=== PATIENT | male | born 1955 | race Caucasian/White ===

== ENCOUNTER 2017-05-20 12:01 | Observation (INO) ==
[2017-05-20 14:54] LABS: Basophils # 0.1 10*3/uL (0.0-0.2); Basophils % 0.9 % (0.0-0.8); Eosinophils # 1.6 10*3/uL (0.0-0.87); Hematocrit 45.2 VOL% (42.0-52.0); Hemoglobin 15.4 GM/DL (14.0-18.0); Immature Granulocytes % 0.4 %; Immature Granulocytes Absolute 0.03 #; Lymphocytes # 1.5 10*3/uL (1.4-4.0); Lymphocytes % 18.8 % (21.2-54.2); Mean Corpuscular HGB Conc 34.1 GM/DL (32-36); Mean Corpuscular Hemoglobin 30 PG (27-34); Mean Corpuscular Volume 87.6 FL (87-102); Mean Platelet Volume 9.3 FL (9.6-12.0); Monocytes # 0.5 10*3/uL (0.11-0.8); Monocytes % 6.3 % (1.7-12.7); Neutrophils # 4.2 10*3/uL (1.4-7.4); Neutrophils % 53.6 % (38.7-73.9); Platelet Count 194 T/CUMM (130-400); Red Blood Count 5.16 MC/CUMM (3.8-5.5); Red Cell Distribution Width 13.2 % (9.3-17.3); White Blood Count 7.8 T/CUMM (4-12)
[2017-05-20 15:02] LABS: PT Patient Result 10.1 SECS; Partial Thromboplastin Time 25.8 SECS (0-40)
[2017-05-20 15:22] LABS: Eosinophils 17 % (0-10); Lymphocytes 18 % (20-55); Platelet Estimate Adequate; Segmented Neutrophils 58 % (50-85); Total Cells Counted 100
[2017-05-20 15:23] LABS: Alanine Aminotransferase 20 U/L (16-61); Albumin 3.9 G/DL (3.4-5.0); Alkaline Phosphatase 73 U/L (45-117); Aspartate Amino Transferase 10 U/L (0-37); Bilirubin,Total < 0.39 MG/DL (0.2-1.0); Blood Urea Nitrogen 22 MG/DL (7-18); Calcium 9.4 MG/DL (8.5-10.1); Glucose 129 MG/DL (74-106); Osmolality,Calculated 283.4 MOS/KG (273-304); Potassium 3.8 MMOL/L (3.5-5.1); Sodium 140 MMOL/L (136-145); Total Protein 7.5 G/DL (6.4-8.3); Troponin I Only < 0.015 NG/ML (0.00-0.045)
[2017-05-20 17:28] LABS: Risk Ratio 4.36; VLDL CHOLESTEROL 29.2 MG/DL
[2017-05-20] MEDS ORDERED: ENOXAPARIN 40 MG/0.4 ML SYRINGE ONE (18:58)
[2017-05-20] MEDS ORDERED: ASPIRIN 325 MG TABLET ONE (18:59)
[2017-05-20] MEDS ORDERED: CLOPIDOGREL 75 MG TABLET ONE (18:59)
[2017-05-20] MEDS: ENOXAPARIN 40 MG/0.4 ML SYRINGE SUBCUT SCH (19:12)
[2017-05-20] MEDS ORDERED: CLOPIDOGREL 75 MG TABLET PO STA (19:13)
[2017-05-20] MEDS ORDERED: oxyCODONE/ACETAMINOPHEN 5-325 MG TABLET PO PRN (23:17)
[2017-05-20] MEDS: ASPIRIN EC 81 MG TABLET PO SCH (23:55)
[2017-05-20] MEDS: PRAVASTATIN 40 MG TABLET PO SCH (23:55)
[2017-05-21] MEDS: CLOPIDOGREL 75 MG TABLET PO SCH (08:53)
[2017-05-21] MEDS: metFORMIN 500 MG TABLET PO SCH ×2 (08:56→18:01)
[2017-05-21] MEDS: sitaGLIPtin 25 MG TABLET PO SCH ×2 (08:57→18:01)
[2017-05-21] MEDS: ASPIRIN 325 MG TABLET PO SCH (08:58)
[2017-05-21] MEDS ORDERED: Canagliflozin [Invokana] 300 MG PO SCH (09:00)
[2017-05-21] MEDS: ENOXAPARIN 40 MG/0.4 ML SYRINGE SUBCUT SCH (17:57)
[2017-05-21] MEDS: PRAVASTATIN 40 MG TABLET PO SCH ×2 (20:28→20:30)
[2017-05-21] MEDS: ASPIRIN EC 81 MG TABLET PO SCH (20:29)
[2017-05-22 08:16] VITALS: BP 131/72
[2017-05-22] MEDS: CLOPIDOGREL 75 MG TABLET PO SCH (09:06)
[2017-05-22] MEDS: metFORMIN 500 MG TABLET PO SCH (09:09)
[2017-05-22] MEDS: ASPIRIN 325 MG TABLET PO SCH (09:09)
[2017-05-22] MEDS: sitaGLIPtin 25 MG TABLET PO SCH (09:09)
== END 2017-05-22 11:50 | disposition home or self-care (01) ==
LOC: N.EDINP 12:01 → N.ED 12:01 → N.TELES 19:58
PROVIDERS: ADMIT Hospitalist; ATTEND Hospitalist

== ENCOUNTER 2017-06-18 06:56 | Inpatient (IN) ==
[2017-06-16 16:01] LABS: Basophils # 0.1 10*3/uL (0.0-0.2); Basophils % 0.9 % (0.0-0.8); Eosinophils # 1.4 10*3/uL (0.0-0.87); Hemoglobin 14.1 GM/DL (14.0-18.0); Immature Granulocytes % 0.4 %; Immature Granulocytes Absolute 0.03 #; Lymphocytes # 1.4 10*3/uL (1.4-4.0); Lymphocytes % 20.4 % (21.2-54.2); Mean Corpuscular HGB Conc 32.8 GM/DL (32-36); Mean Corpuscular Hemoglobin 30 PG (27-34); Mean Corpuscular Volume 90.7 FL (87-102); Mean Platelet Volume 9.2 FL (9.6-12.0); Monocytes # 0.5 10*3/uL (0.11-0.8); Monocytes % 6.7 % (1.7-12.7); Neutrophils # 3.6 10*3/uL (1.4-7.4); Neutrophils % 51.6 % (38.7-73.9); Platelet Count 237 T/CUMM (130-400); Red Blood Count 4.74 MC/CUMM (3.8-5.5); Red Cell Distribution Width 12.9 % (9.3-17.3); White Blood Count 6.9 T/CUMM (4-12)
[2017-06-16 16:20] LABS: Potassium 4.3 MMOL/L (3.5-5.1)
[2017-06-16 16:27] LABS: Eosinophils 12 % (0-10); Lymphocytes 20 % (20-55); Platelet Estimate Adequate; Segmented Neutrophils 64 % (50-85); Total Cells Counted 100
[~2017-06-18 06:56] MED LIST: ceFAZolin 1,000 MG VIAL ONE; ceFAZolin 1,000 MG in SYRINGE 1 EACH IV ONE
[2017-06-18] MEDS ORDERED: FAMOTIDINE 20 MG TABLET ONE (07:06)
[2017-06-18] MEDS ORDERED: DIAZEPAM 5 MG TABLET ONE (07:06)
[2017-06-18] MEDS: LACTATED RINGERS 1,000 ML IV SCH ×3 (07:30→19:10)
[2017-06-18] MEDS ORDERED: DIAZEPAM 5 MG TABLET PO STA (07:33)
[2017-06-18] MEDS ORDERED: FAMOTIDINE 20 MG TABLET PO STA (07:34)
[2017-06-18] MEDS ORDERED: HEPARIN 5,000 UNIT/1 ML VIAL ONE (07:48)
[2017-06-18] MEDS ORDERED: VANCOMYCIN 500 MG VIAL ONE (07:48)
[2017-06-18 09:50] LABS: ABG Base Excess -1.1 MMOL/L (-2.5-2.5); ABG HCO3 23.5 MMOL/L (20-26); ABG Oxygen Saturation 99.3 % (95-100); ABG PCO2 38.7 MM HG (35-48); ABG PH 7.392 (7.35-7.45); ABG TCO2 20.6 MMOL/L (23-27); Glucose Heart Surgery 126 MG/DL (74-106); Hematocrit Heart Surgery 39.8 PERCENT (42-52); Hemoglobin Heart Surgery 12.9 G/DL (14.0-18.0); Potassium Heart/CVR 3.8 MMOL/L (3.5-5.1)
[2017-06-18] MEDS ORDERED: GLUCAGON 1 MG VIAL IM PRN (10:00)
[2017-06-18] MEDS ORDERED: NITROPRUSSIDE 100 MG in DEXTROSE 5% 250 ML IV SCH (10:00)
[2017-06-18] MEDS ORDERED: NALOXONE 0.4 MG/ML VIAL IV PRN (10:00)
[2017-06-18] MEDS ORDERED: DEXTROSE 50% 25 GM/50 ML VIAL IV PRN (10:00)
[2017-06-18] MEDS ORDERED: oxyCODONE/ACETAMINOPHEN 5-325 MG TABLET PO PRN ×2 (10:00)
[2017-06-18] MEDS ORDERED: ONDANSETRON 4 MG/2 ML VIAL IV PRN ×2 (10:00→11:00)
[2017-06-18] MEDS ORDERED: PROMETHAZINE 25 MG/1 ML VIAL IM PRN (10:00)
[2017-06-18] MEDS ORDERED: PHENYLEPHRINE DRIP 40 MG/250 ML PREMIX IV SCH (10:00)
[2017-06-18] MEDS ORDERED: HYDROmorphone 2 MG/1 ML VIAL IV PRN ×3 (10:00→11:00)
[2017-06-18] MEDS ORDERED: PROPOFOL 200 MG/20 ML VIAL IV ONE (10:19)
[2017-06-18] MEDS ORDERED: DESFLURANE 1 UNIT/15 MINUTE INH ONE (10:20)
[2017-06-18] MEDS ORDERED: NEOSTIGMINE 10 MG/10 ML VIAL ONE (10:20)
[2017-06-18] MEDS ORDERED: fentaNYL 100 MCG/2 ML VIAL ONE (10:20)
[2017-06-18] MEDS ORDERED: GLYCOPYRROLATE 0.4 MG/2 ML VIAL ONE (10:20)
[2017-06-18] MEDS ORDERED: PHENYLEPHRINE 50 MG/5 ML VIAL ONE (10:20)
[2017-06-18] MEDS ORDERED: SODIUM CHLORIDE 0.9% 250 ML IV ONE (10:21)
[2017-06-18] MEDS ORDERED: SODIUM CHLORIDE 0.9% 1,000 ML IV ONE (10:21)
[2017-06-18] MEDS ORDERED: ROCURONIUM 100 MG/10 ML VIAL IV ONE (10:21)
[2017-06-18] MEDS ORDERED: PROTAMINE SULFATE 50 MG/5 ML VIAL IV ONE (10:21)
[2017-06-18] MEDS ORDERED: HEPARIN 10,000 UNIT/10 ML VIAL ONE (10:21)
[2017-06-18] MEDS ORDERED: diphenhydrAMINE 50 MG/1 ML VIAL IV ONE (12:02)
[2017-06-18] MEDS ORDERED: DEXAMETHASONE 10 MG/1 ML VIAL IV ONE (12:02)
[2017-06-18] MEDS ORDERED: KETOROLAC 30 MG/1 ML VIAL IV ONE (12:16)
[2017-06-18] MEDS: ASPIRIN 325 MG TABLET PO SCH (20:58)
[2017-06-18] MEDS: CLOPIDOGREL 75 MG TABLET PO SCH (20:58)
[2017-06-18] MEDS: INSULIN REGULAR 100 UNIT/ML SUBCUT SCH (20:58)
[2017-06-18] MEDS ORDERED: METFORMIN HCL PO SCH (21:00)
[2017-06-18] MEDS ORDERED: PRAVASTATIN 40 MG TABLET PO SCH (21:00)
[2017-06-18] MEDS ORDERED: SITAGLIPTIN PHOS PO SCH (21:00)
[2017-06-19] MEDS: LACTATED RINGERS 1,000 ML IV SCH ×2 (07:46→08:05)
[2017-06-19] MEDS: INSULIN REGULAR 100 UNIT/ML SUBCUT SCH ×2 (08:04→12:42)
[2017-06-19] MEDS: CLOPIDOGREL 75 MG TABLET PO SCH (08:55)
[2017-06-19] MEDS: ASPIRIN 325 MG TABLET PO SCH (08:56)
[2017-06-19] MEDS ORDERED: CLOPIDOGREL 75 MG TABLET PO SCH (09:00)
[2017-06-19] MEDS ORDERED: ASPIRIN 325 MG TABLET PO SCH (09:00)
[2017-06-19] MEDS ORDERED: CANAGLIFLOZIN 300 MG PO SCH ×2 (09:00→09:30)
[2017-06-19] MEDS ORDERED: OXYCODONE PO PRN (09:46)
[2017-06-19] MEDS ORDERED: ACETAMINOPHEN PO PRN (09:46)
[2017-06-19 11:47] VITALS: BP 95/54
== END 2017-06-19 13:00 | disposition home or self-care (01) | DRG 39 ==
LOC: N.SDSINP 06:56 → N.ICU 11:48 → N.3E 06-19 09:45
PROVIDERS: ADMIT Surgery; ATTEND Surgery

== ENCOUNTER 2019-04-04 13:05 | Observation (INO) ==
[2019-04-04] MEDS ORDERED: MORPHINE 4 MG/1 ML VIAL IV STA (13:30)
[2019-04-04] MEDS ORDERED: FUROSEMIDE 100 MG/10 ML VIAL IV STA (13:30)
[2019-04-04 14:24] LABS: Basophils % 0.7 % (0.0-0.8); Eosinophils % 17.8 % (0.00-10.9); Hematocrit 39.2 VOL% (42.0-52.0); Hemoglobin 12.4 GM/DL (14.0-18.0); Immature Granulocytes % 0.2 %; Immature Granulocytes Absolute 0.01 #; Lymphocytes # 0.7 10*3/uL (1.4-4.0); Lymphocytes % 12.3 % (21.2-54.2); Mean Corpuscular HGB Conc 31.6 GM/DL (32-36); Mean Corpuscular Volume 89.7 FL (87-102); Mean Platelet Volume 10.1 FL (9.6-12.0); Platelet Count 197 T/CUMM (130-400); Red Blood Count 4.37 MC/CUMM (3.8-5.5); Red Cell Distribution Width 13.8 % (9.3-17.3); White Blood Count 5.8 T/CUMM (4-12)
[2019-04-04] MEDS ORDERED: ALBUTEROL 2.5 MG/3 ML NEB RESP TX STA (14:44)
[2019-04-04 14:51] LABS: Albumin 3.7 G/DL (3.4-5.0); Bilirubin,Total 0.4 MG/DL (0.2-1.0); Calcium 8.8 MG/DL (8.5-10.1); Osmolality,Calculated 287.1 MOS/KG (273-304); Total Protein 7.1 G/DL (6.4-8.3)
[2019-04-04] MEDS ORDERED: DOCUSATE SODIUM 100 MG CAPSULE PO PRN (15:55)
[2019-04-04] MEDS ORDERED: ACETAMINOPHEN 325 MG TABLET PO PRN (15:55)
[2019-04-04] MEDS ORDERED: ONDANSETRON 4 MG/2 ML VIAL IV PRN (15:55)
[2019-04-04] MEDS ORDERED: LACTULOSE 20 GM/30 ML UDCUP PO PRN (15:55)
[2019-04-04] MEDS ORDERED: NICOTINE 21 MG/24 HR PATCH TRANSDERM PRN (15:55)
[2019-04-04] MEDS ORDERED: guaiFENesin/DM ER 600-30 MG TABLET PO PRN (15:55)
[2019-04-04] MEDS ORDERED: MAGNESIUM SULF RIDER 4 GM in PREMIX 1 EACH IV PRN (15:55)
[2019-04-04] MEDS ORDERED: ALBUTEROL 2.5 MG/3 ML NEB RESP TX PRN (15:58)
[2019-04-04] MEDS ORDERED: DEXTROSE 10% 25 GM/250 ML BAG IV PRN (15:59)
[2019-04-04] MEDS ORDERED: GLUCAGON 1 MG VIAL IM PRN (15:59)
[2019-04-04 16:00] LABS: Apearance,Urine CLEAR (Clear); Bilirubin,Urine Negative (Negative); Blood, Urine Negative (Negative); Glucose,Urine (UA) >=500 mg/dL (Negative); Ketones,Urine Negative (Negative); Mucus,Urine Occasional /LPF (Occasional); Nitrite,Urine Negative (Negative); Protein,Urine Negative; RBC,Urine 2 /HPF (0-4); Urine Color Yellow (Yellow); Urine Specific Gravity 1.009 (1.001-1.035); Urine Urobilinogen < 2.0 EU/DL (0.2-1.0); WBC,Urine <1 /HPF (0-6)
[2019-04-04] MEDS ORDERED: FUROSEMIDE 40 MG/4 ML VIAL IV SCH (16:00)
[2019-04-04 16:06] LABS: Eosinophils 16 % (0-10); Lymphocytes 11 % (20-55); Nucleated Red Blood Cells 1 (0-5); Segmented Neutrophils 70 % (50-85); Total Cells Counted 100
[2019-04-04 16:07] LABS: Anisocytosis 1+; Microcytosis 1+; Platelet Estimate Normal
[2019-04-04] MEDS ORDERED: ENOXAPARIN 40 MG/0.4 ML SYRINGE SUBCUT SCH (16:30)
[2019-04-04] MEDS: INSULIN REGULAR 100 UNIT/ML SUBCUT SCH ×2 (17:35→22:49)
[2019-04-04] MEDS: ALBUTEROL/IPRATROPIUM 3 ML NEB RESP TX SCH ×2 (19:14→23:00)
[2019-04-04] MEDS: BUMETANIDE 1 MG/4 ML VIAL IV SCH (20:31)
[2019-04-04] MEDS: MAGNESIUM OXIDE 400 MG TABLET PO SCH (20:37)
[2019-04-04] MEDS: GLIMEPIRIDE 4 MG TABLET PO SCH (20:38)
[2019-04-04] MEDS: MAGNESIUM SULF RIDER 2 GM in PREMIX 1 EACH IV PRN ×2 (20:39→22:35)
[2019-04-04] MEDS ORDERED: metFORMIN 500 MG TABLET PO SCH (21:00)
[2019-04-04] MEDS ORDERED: ENOXAPARIN 100 MG/ML SYRINGE SUBCUT SCH (21:00)
[2019-04-04] MEDS ORDERED: SIMVASTATIN 20 MG TABLET PO SCH (21:00)
[2019-04-04] MEDS ORDERED: ASPIRIN EC 81 MG TABLET PO SCH (21:00)
[2019-04-05] MEDS: ALBUTEROL/IPRATROPIUM 3 ML NEB RESP TX SCH ×3 (03:00→10:42)
[2019-04-05 04:28] LABS: Basophils # 0.1 10*3/uL (0.0-0.2); Basophils % 0.8 % (0.0-0.8); Eosinophils # 1.5 10*3/uL (0.0-0.87); Eosinophils % 22.2 % (0.00-10.9); Hematocrit 36.5 VOL% (42.0-52.0); Hemoglobin 11.6 GM/DL (14.0-18.0); Immature Granulocytes % 0.3 %; Immature Granulocytes Absolute 0.02 #; Lymphocytes # 0.8 10*3/uL (1.4-4.0); Lymphocytes % 11.6 % (21.2-54.2); Mean Corpuscular HGB Conc 31.8 GM/DL (32-36); Mean Platelet Volume 11.6 FL (9.6-12.0); Monocytes % 6.6 % (1.7-12.7); Neutrophils % 58.5 % (38.7-73.9); Platelet Count 160 T/CUMM (130-400); Red Blood Count 4.15 MC/CUMM (3.8-5.5); White Blood Count 6.5 T/CUMM (4-12)
[2019-04-05 04:49] LABS: Eosinophils 23 % (0-10); Hypochromasia 1+; Lymphocytes 11 % (20-55); Ovalocytes Slight; Platelet Estimate Adequate; Segmented Neutrophils 56 % (50-85); Total Cells Counted 100
[2019-04-05 04:50] LABS: Microcytosis 1+
[2019-04-05 04:55] LABS: ABG HCO3 28.9 MMOL/L (20-26); ABG Oxygen Saturation 93.2 % (95-100); ABG PCO2 50.8 MM HG (35-48); ABG PH 7.395 (7.35-7.45); ABG PO2 68.6 MM HG (80-95); ABG TCO2 27.7 MMOL/L (23-27)
[2019-04-05] MEDS ORDERED: SPIRONOLACTONE 25 MG TABLET PO SCH (09:00)
[2019-04-05] MEDS ORDERED: POTASSIUM CHLORIDE 10 MEQ TABLET PO SCH (09:00)
[2019-04-05] MEDS ORDERED: PANTOPRAZOLE 40 MG TABLET PO SCH (09:00)
[2019-04-05] MEDS ORDERED: carvediloL 3.125 MG TABLET PO SCH (09:00)
[2019-04-05] MEDS ORDERED: BISACODYL 5 MG TABLET PO SCH (09:00)
[2019-04-05] MEDS ORDERED: CLOPIDOGREL 75 MG TABLET PO SCH (09:00)
[2019-04-05] MEDS ORDERED: ENOXAPARIN 40 MG/0.4 ML SYRINGE SUBCUT SCH (09:12)
[2019-04-05 09:58] LABS: Calcium 8.7 MG/DL (8.5-10.1); Risk Ratio 3.37; VLDL CHOLESTEROL 22.4 MG/DL
[2019-04-05] MEDS: GLIMEPIRIDE 4 MG TABLET PO SCH (10:01)
[2019-04-05] MEDS: MAGNESIUM OXIDE 400 MG TABLET PO SCH (10:03)
[2019-04-05] MEDS: BUMETANIDE 1 MG/4 ML VIAL IV SCH (10:05)
[2019-04-05] MEDS: INSULIN REGULAR 100 UNIT/ML SUBCUT SCH ×2 (10:06→11:55)
[2019-04-05 11:55] VITALS: BP 101/66
[2019-04-05] MEDS ORDERED: BUDESONIDE/FORMOTEROL 160-4.5 INHALER 6 GM INH SCH (21:00)
[2019-04-05] MEDS ORDERED: sitaGLIPtin 100 MG TABLET PO SCH (21:00)
== END 2019-04-05 16:30 | disposition home or self-care (01) ==
LOC: N.ED 13:05 → N.EDINP 13:05 → N.2W 16:41
PROVIDERS: ADMIT Hospitalist; ATTEND Hospitalist

== ENCOUNTER 2019-05-06 19:27 | Inpatient (IN) ==
[2019-05-06] MEDS ORDERED: methylPREDNISolone SOD SUC 125 MG/2 ML VIAL IV STA (20:04)
[2019-05-06 20:23] LABS: Basophils % 0.5 % (0.0-0.8); Eosinophils # 0.4 10*3/uL (0.0-0.87); Hematocrit 39.5 VOL% (42.0-52.0); Hemoglobin 12.5 GM/DL (14.0-18.0); Immature Granulocytes % 0.5 %; Immature Granulocytes Absolute 0.03 #; Lymphocytes # 0.7 10*3/uL (1.4-4.0); Lymphocytes % 11.1 % (21.2-54.2); Mean Corpuscular HGB Conc 31.6 GM/DL (32-36); Mean Corpuscular Volume 87.2 FL (87-102); Mean Platelet Volume 10.6 FL (9.6-12.0); Monocytes % 6.8 % (1.7-12.7); Neutrophils % 74.1 % (38.7-73.9); Platelet Count 174 T/CUMM (130-400); Red Blood Count 4.53 MC/CUMM (3.8-5.5); Red Cell Distribution Width 13.9 % (9.3-17.3)
[2019-05-06] MEDS ORDERED: ALBUTEROL NEB SOLN 5 MG/ML 20 ML/BOTTLE RESP TX SCH (20:30)
[2019-05-06 20:33] LABS: PT Patient Result 10.7 SECS (9.6-12.2)
[2019-05-06 20:48] LABS: Bilirubin,Total 0.5 MG/DL (0.2-1.0); Calcium 9.3 MG/DL (8.5-10.1); Osmolality,Calculated 284.8 MOS/KG (273-304); Total Protein 7.5 G/DL (6.4-8.3)
[2019-05-06] MEDS ORDERED: MAGNESIUM CHLORIDE 64 MG TABLET PO STA ×2 (20:54→21:24)
[2019-05-06] MEDS ORDERED: ONDANSETRON 4 MG/2 ML VIAL IV PRN (22:21)
[2019-05-06] MEDS ORDERED: ACETAMINOPHEN 325 MG TABLET PO PRN (22:21)
[2019-05-06] MEDS ORDERED: GLUCAGON 1 MG VIAL IM PRN (23:04)
[2019-05-06] MEDS ORDERED: DEXTROSE 50% 25 GM/50 ML VIAL IV PRN (23:04)
[2019-05-06] MEDS ORDERED: MAGNESIUM SULF RIDER 4 GM in PREMIX 1 EACH IV PRN (23:45)
[2019-05-06] MEDS ORDERED: MAGNESIUM SULF RIDER 2 GM in PREMIX 1 EACH IV PRN (23:45)
[2019-05-06] MEDS ORDERED: FUROSEMIDE 40 MG/4 ML VIAL IV ONE (23:45)
[2019-05-07] MEDS: INSULIN REGULAR 100 UNIT/ML SUBCUT SCH ×4 (00:53→17:26)
[2019-05-07 07:48] LABS: Basophils % 0.2 % (0.0-0.8); Hematocrit 36.3 VOL% (42.0-52.0); Hemoglobin 11.4 GM/DL (14.0-18.0); Immature Granulocytes % 0.5 %; Immature Granulocytes Absolute 0.02 #; Lymphocytes # 0.3 10*3/uL (1.4-4.0); Lymphocytes % 7.5 % (21.2-54.2); Mean Corpuscular HGB Conc 31.4 GM/DL (32-36); Mean Corpuscular Volume 87.3 FL (87-102); Mean Platelet Volume 11.4 FL (9.6-12.0); Monocytes % 3.9 % (1.7-12.7); Neutrophils % 87.9 % (38.7-73.9); Platelet Count 167 T/CUMM (130-400); Red Blood Count 4.16 MC/CUMM (3.8-5.5); Red Cell Distribution Width 14.1 % (9.3-17.3); White Blood Count 4.4 T/CUMM (4-12)
[2019-05-07] MEDS ORDERED: FUROSEMIDE 40 MG/4 ML VIAL IV SCH (08:00)
[2019-05-07 08:03] LABS: Albumin 3.4 G/DL (3.4-5.0); Osmolality,Calculated 288.4 MOS/KG (273-304); Total Protein 6.7 G/DL (6.4-8.3)
[2019-05-07] MEDS: MAGNESIUM OXIDE 400 MG TABLET PO SCH ×2 (08:17→20:56)
[2019-05-07] MEDS: PANTOPRAZOLE 40 MG TABLET PO SCH (08:18)
[2019-05-07] MEDS: DOCUSATE SODIUM 100 MG CAPSULE PO SCH (08:18)
[2019-05-07] MEDS: NYSTATIN 500,000 UNIT/5 ML UDCUP PO SCH ×4 (08:22→20:57)
[2019-05-07] MEDS: BUDESONIDE/FORMOTEROL 160-4.5 INHALER 6 GM INH SCH ×2 (08:23→20:54)
[2019-05-07] MEDS ORDERED: ALBUTEROL SULFATE INH PRN (09:47)
[2019-05-07] MEDS: SPIRONOLACTONE 25 MG TABLET PO SCH (10:21)
[2019-05-07] MEDS: CLOPIDOGREL 75 MG TABLET PO SCH (10:21)
[2019-05-07] MEDS: METOPROLOL TARTRATE 25 MG TABLET PO SCH (14:49)
[2019-05-07] MEDS: ENOXAPARIN 40 MG/0.4 ML SYRINGE SUBCUT SCH (14:50)
[2019-05-07] MEDS ORDERED: MAGNESIUM CITRATE 300 ML BOTTLE PO ONE (15:46)
[2019-05-07] MEDS: FUROSEMIDE 40 MG/4 ML VIAL IV SCH (16:47)
[2019-05-07] MEDS ORDERED: ALBUTEROL 2.5 MG/3 ML NEB RESP TX PRN (16:48)
[2019-05-07] MEDS ORDERED: FUROSEMIDE 40 MG/4 ML VIAL IV ONE (18:43)
[2019-05-07] MEDS: ASPIRIN EC 81 MG TABLET PO SCH (20:54)
[2019-05-07] MEDS: SIMVASTATIN 20 MG TABLET PO SCH (20:57)
[2019-05-07] MEDS: ALBUTEROL 2.5 MG/3 ML NEB RESP TX PRN (21:39)
[2019-05-07] MEDS: clonazePAM 0.5 MG TABLET PO PRN (22:02)
[2019-05-08] MEDS: INSULIN REGULAR 100 UNIT/ML SUBCUT SCH ×5 (00:18→20:57)
[2019-05-08] MEDS: METOPROLOL TARTRATE 25 MG TABLET PO SCH (00:18)
[2019-05-08] MEDS: ALBUTEROL/IPRATROPIUM 3 ML NEB RESP TX SCH ×4 (00:22→19:42)
[2019-05-08] MEDS: ALBUTEROL 2.5 MG/3 ML NEB RESP TX PRN ×2 (04:39→14:34)
[2019-05-08 04:55] LABS: ABG Base Excess 6.3 MMOL/L (-2.5-2.5); ABG Oxygen Saturation 92.6 % (95-100); ABG PCO2 52.9 MM HG (35-48); ABG PH 7.397 (7.35-7.45); ABG PO2 67.8 MM HG (80-95); Allen Test Positive; Pt O2 Delivery Device Room Air
[2019-05-08 06:48] LABS: Calcium 9.2 MG/DL (8.5-10.1); Osmolality,Calculated 278.5 MOS/KG (273-304)
[2019-05-08] MEDS: MAGNESIUM OXIDE 400 MG TABLET PO SCH ×2 (09:39→20:57)
[2019-05-08] MEDS: SPIRONOLACTONE 25 MG TABLET PO SCH (09:39)
[2019-05-08] MEDS: PANTOPRAZOLE 40 MG TABLET PO SCH (09:40)
[2019-05-08] MEDS: NYSTATIN 500,000 UNIT/5 ML UDCUP PO SCH ×4 (09:40→20:57)
[2019-05-08] MEDS: DOCUSATE SODIUM 100 MG CAPSULE PO SCH (09:40)
[2019-05-08] MEDS: CLOPIDOGREL 75 MG TABLET PO SCH (09:40)
[2019-05-08] MEDS: BUDESONIDE/FORMOTEROL 160-4.5 INHALER 6 GM INH SCH ×2 (09:41→20:57)
[2019-05-08] MEDS: METOPROLOL SUCCINATE XL 25 MG TABLET PO SCH ×2 (09:43→20:57)
[2019-05-08] MEDS: FUROSEMIDE 40 MG/4 ML VIAL IV SCH ×2 (09:43→16:57)
[2019-05-08] MEDS: metOLazone 5 MG TABLET PO SCH (09:47)
[2019-05-08] MEDS ORDERED: FUROSEMIDE 40 MG/4 ML VIAL IV ONE (10:39)
[2019-05-08] MEDS ORDERED: metOLazone 2.5 MG TABLET PO ONE (10:43)
[2019-05-08] MEDS: PIPERACILLIN/TAZOBACTAM 3,375 MG in SODIUM CHLORIDE 0.9% 100 ML IV SCH ×2 (14:31→20:58)
[2019-05-08] MEDS: ENOXAPARIN 40 MG/0.4 ML SYRINGE SUBCUT SCH (14:31)
[2019-05-08] MEDS: ACETYLCYSTEINE 20% 800 MG/4 ML VIAL RESP TX SCH ×2 (14:34→19:42)
[2019-05-08] MEDS: ASPIRIN EC 81 MG TABLET PO SCH (20:57)
[2019-05-08] MEDS: SIMVASTATIN 20 MG TABLET PO SCH (20:58)
[2019-05-08] MEDS: clonazePAM 0.5 MG TABLET PO PRN (22:29)
[2019-05-09] MEDS: ALBUTEROL/IPRATROPIUM 3 ML NEB RESP TX SCH ×4 (00:24→21:30)
[2019-05-09] MEDS: ACETYLCYSTEINE 20% 800 MG/4 ML VIAL RESP TX SCH ×4 (02:15→21:30)
[2019-05-09] MEDS: PIPERACILLIN/TAZOBACTAM 3,375 MG in SODIUM CHLORIDE 0.9% 100 ML IV SCH ×3 (05:06→23:08)
[2019-05-09 06:04] LABS: Blood Urea Nitrogen 54 MG/DL (7-18); Calcium 9.4 MG/DL (8.5-10.1); Estimated Glom Filtration Rate 69 ML/MIN; Glucose 100 MG/DL (74-106); Troponin I 0.045 NG/ML (0.00-0.045)
[2019-05-09] MEDS: INSULIN REGULAR 100 UNIT/ML SUBCUT SCH ×4 (07:26→20:55)
[2019-05-09] MEDS ORDERED: POTASSIUM CHLORIDE 20 MEQ PACK PO ONE ×2 (07:34→17:28)
[2019-05-09] MEDS: CLOPIDOGREL 75 MG TABLET PO SCH (08:47)
[2019-05-09] MEDS: DOCUSATE SODIUM 100 MG CAPSULE PO SCH (08:47)
[2019-05-09] MEDS: MAGNESIUM OXIDE 400 MG TABLET PO SCH ×2 (08:47→20:56)
[2019-05-09] MEDS: PANTOPRAZOLE 40 MG TABLET PO SCH (08:47)
[2019-05-09] MEDS: NYSTATIN 500,000 UNIT/5 ML UDCUP PO SCH ×5 (08:47→20:56)
[2019-05-09] MEDS: SPIRONOLACTONE 25 MG TABLET PO SCH (08:48)
[2019-05-09] MEDS: FUROSEMIDE 40 MG/4 ML VIAL IV SCH ×2 (08:48→17:51)
[2019-05-09] MEDS: BUDESONIDE/FORMOTEROL 160-4.5 INHALER 6 GM INH SCH ×2 (08:51→20:56)
[2019-05-09] MEDS: METOPROLOL SUCCINATE XL 25 MG TABLET PO SCH (08:52)
[2019-05-09] MEDS: metOLazone 5 MG TABLET PO SCH (08:53)
[2019-05-09] MEDS: POTASSIUM CHLORIDE 20 MEQ TABLET PO SCH ×5 (12:20→20:55)
[2019-05-09] MEDS ORDERED: LIDOCAINE 1% 20 ML VIAL ONE (12:54)
[2019-05-09] MEDS: ENOXAPARIN 40 MG/0.4 ML SYRINGE SUBCUT SCH (13:46)
[2019-05-09] MEDS ORDERED: diphenhydrAMINE CAP 25 MG CAPSULE PO ONE (14:38)
[2019-05-09] MEDS ORDERED: DIAZEPAM 5 MG TABLET PO ONE (14:38)
[2019-05-09] MEDS ORDERED: POTASSIUM CHLORIDE RIDER 10 MEQ in PREMIX 1 EACH IV PRN (14:38)
[2019-05-09] MEDS ORDERED: MAGNESIUM SULF RIDER 2 GM in PREMIX 1 EACH IV PRN (14:38)
[2019-05-09] MEDS ORDERED: MIDAZOLAM 2 MG/2 ML VIAL ONE (15:30)
[2019-05-09] MEDS ORDERED: fentaNYL 100 MCG/2 ML VIAL ONE (15:32)
[2019-05-09] MEDS ORDERED: HEPARIN 5,000 UNIT/1 ML VIAL ONE (15:47)
[2019-05-09 16:15] LABS: Apearance,Urine CLEAR (Clear); Bilirubin,Urine Negative (Negative); Blood, Urine Small mg/dL (Negative); Glucose,Urine (UA) Negative (Negative); Hyaline Casts,Urine 3 /LPF (0-3); Ketones,Urine Negative (Negative); Nitrite,Urine Negative (Negative); Protein,Urine Negative; RBC,Urine 1 /HPF (0-4); Squamous Epithelial Cell,Urine Occasional /HPF (0-10); Urine Color Colorless (Yellow); Urine Specific Gravity 1.008 (1.001-1.035); Urine Urobilinogen < 2.0 EU/DL (0.2-1.0)
[2019-05-09] MEDS: oxyCODONE/ACETAMINOPHEN 5-325 MG TABLET PO PRN (19:55)
[2019-05-09] MEDS: ASPIRIN EC 81 MG TABLET PO SCH (20:55)
[2019-05-09] MEDS: carvediloL 3.125 MG TABLET PO SCH (20:55)
[2019-05-09] MEDS: SIMVASTATIN 20 MG TABLET PO SCH (20:56)
[2019-05-10] MEDS: ALBUTEROL/IPRATROPIUM 3 ML NEB RESP TX SCH ×4 (00:57→19:04)
[2019-05-10] MEDS: ACETYLCYSTEINE 20% 800 MG/4 ML VIAL RESP TX SCH ×4 (00:57→19:04)
[2019-05-10] MEDS: oxyCODONE/ACETAMINOPHEN 5-325 MG TABLET PO PRN (02:18)
[2019-05-10 04:59] LABS: Basophils % 0.7 % (0.0-0.8); Eosinophils # 0.3 10*3/uL (0.0-0.87); Eosinophils % 4.7 % (0.00-10.9); Hematocrit 37.3 VOL% (42.0-52.0); Hemoglobin 11.3 GM/DL (14.0-18.0); Immature Granulocytes % 0.3 %; Immature Granulocytes Absolute 0.02 #; Lymphocytes # 0.5 10*3/uL (1.4-4.0); Mean Corpuscular HGB Conc 30.3 GM/DL (32-36); Mean Corpuscular Volume 89.7 FL (87-102); Monocytes % 10.5 % (1.7-12.7); Neutrophils % 75.8 % (38.7-73.9); Platelet Count 170 T/CUMM (130-400); Red Blood Count 4.16 MC/CUMM (3.8-5.5); Red Cell Distribution Width 14.1 % (9.3-17.3)
[2019-05-10 05:16] LABS: Calcium 9.1 MG/DL (8.5-10.1); Osmolality,Calculated 286.1 MOS/KG (273-304)
[2019-05-10] MEDS: PIPERACILLIN/TAZOBACTAM 3,375 MG in SODIUM CHLORIDE 0.9% 100 ML IV SCH ×3 (05:44→20:52)
[2019-05-10] MEDS ORDERED: MAGNESIUM SULF RIDER 4 GM in PREMIX 1 EACH IV ONE (08:33)
[2019-05-10] MEDS ORDERED: ASPIRIN CHEW 81 MG TABLET PO SCH (09:00)
[2019-05-10] MEDS: PANTOPRAZOLE 40 MG TABLET PO SCH (09:01)
[2019-05-10] MEDS: DOCUSATE SODIUM 100 MG CAPSULE PO SCH (09:01)
[2019-05-10] MEDS: MAGNESIUM OXIDE 400 MG TABLET PO SCH ×2 (09:01→20:48)
[2019-05-10] MEDS: carvediloL 3.125 MG TABLET PO SCH ×2 (09:02→20:35)
[2019-05-10] MEDS: SPIRONOLACTONE 25 MG TABLET PO SCH (09:02)
[2019-05-10] MEDS: metOLazone 5 MG TABLET PO SCH (09:02)
[2019-05-10] MEDS: FUROSEMIDE 40 MG/4 ML VIAL IV SCH ×2 (09:03→15:59)
[2019-05-10] MEDS: INSULIN REGULAR 100 UNIT/ML SUBCUT SCH ×4 (09:03→20:51)
[2019-05-10] MEDS: BUDESONIDE/FORMOTEROL 160-4.5 INHALER 6 GM INH SCH ×2 (09:04→20:56)
[2019-05-10] MEDS: NYSTATIN 500,000 UNIT/5 ML UDCUP PO SCH ×4 (09:04→20:47)
[2019-05-10] MEDS: POTASSIUM CHLORIDE 20 MEQ TABLET PO PRN (11:23)
[2019-05-10] MEDS: buPROPion 75 MG TABLET PO SCH ×2 (12:11→20:49)
[2019-05-10] MEDS: ENOXAPARIN 40 MG/0.4 ML SYRINGE SUBCUT SCH (13:50)
[2019-05-10] MEDS: ASPIRIN EC 81 MG TABLET PO SCH (20:48)
[2019-05-10] MEDS: ROSUVASTATIN 20 MG TABLET PO SCH (20:48)
[2019-05-11] MEDS: ALBUTEROL/IPRATROPIUM 3 ML NEB RESP TX SCH ×4 (00:26→20:19)
[2019-05-11] MEDS: ACETYLCYSTEINE 20% 800 MG/4 ML VIAL RESP TX SCH ×4 (00:28→20:20)
[2019-05-11] MEDS: PIPERACILLIN/TAZOBACTAM 3,375 MG in SODIUM CHLORIDE 0.9% 100 ML IV SCH ×3 (06:13→22:59)
[2019-05-11 06:23] LABS: Calcium 9.1 MG/DL (8.5-10.1); Osmolality,Calculated 279.1 MOS/KG (273-304)
[2019-05-11] MEDS: INSULIN REGULAR 100 UNIT/ML SUBCUT SCH ×4 (08:52→23:39)
[2019-05-11] MEDS: FUROSEMIDE 40 MG/4 ML VIAL IV SCH ×2 (08:53→17:14)
[2019-05-11] MEDS: SPIRONOLACTONE 25 MG TABLET PO SCH (08:53)
[2019-05-11] MEDS: carvediloL 3.125 MG TABLET PO SCH ×2 (08:54→22:54)
[2019-05-11] MEDS: metOLazone 5 MG TABLET PO SCH (08:54)
[2019-05-11] MEDS: MAGNESIUM OXIDE 400 MG TABLET PO SCH ×2 (08:57→22:37)
[2019-05-11] MEDS: DOCUSATE SODIUM 100 MG CAPSULE PO SCH (08:57)
[2019-05-11] MEDS: NYSTATIN 500,000 UNIT/5 ML UDCUP PO SCH ×4 (08:57→22:57)
[2019-05-11] MEDS: POTASSIUM CHLORIDE 20 MEQ TABLET PO PRN ×2 (08:57→10:21)
[2019-05-11] MEDS: PANTOPRAZOLE 40 MG TABLET PO SCH (08:58)
[2019-05-11] MEDS: buPROPion 75 MG TABLET PO SCH ×2 (08:58→22:53)
[2019-05-11] MEDS: BUDESONIDE/FORMOTEROL 160-4.5 INHALER 6 GM INH SCH ×2 (08:58→22:55)
[2019-05-11] MEDS: POTASSIUM CHLORIDE 20 MEQ TABLET PO SCH ×4 (11:14→22:47)
[2019-05-11] MEDS: ENOXAPARIN 40 MG/0.4 ML SYRINGE SUBCUT SCH (13:10)
[2019-05-11] MEDS: ROSUVASTATIN 20 MG TABLET PO SCH (22:37)
[2019-05-11] MEDS: ASPIRIN EC 81 MG TABLET PO SCH (22:39)
[2019-05-11] MEDS: ZALEPLON 5 MG CAPSULE PO PRN (23:39)
[2019-05-12] MEDS ORDERED: MAGNESIUM CITRATE 300 ML BOTTLE PO ONE
[2019-05-12] MEDS: ACETYLCYSTEINE 20% 800 MG/4 ML VIAL RESP TX SCH ×4 (00:31→18:54)
[2019-05-12] MEDS: ALBUTEROL/IPRATROPIUM 3 ML NEB RESP TX SCH ×4 (00:31→18:54)
[2019-05-12 05:35] LABS: Calcium 8.7 MG/DL (8.5-10.1)
[2019-05-12] MEDS: PIPERACILLIN/TAZOBACTAM 3,375 MG in SODIUM CHLORIDE 0.9% 100 ML IV SCH ×3 (06:18→22:26)
[2019-05-12] MEDS: INSULIN REGULAR 100 UNIT/ML SUBCUT SCH ×4 (08:37→22:21)
[2019-05-12] MEDS: FUROSEMIDE 40 MG/4 ML VIAL IV SCH ×2 (09:18→17:24)
[2019-05-12] MEDS: NYSTATIN 500,000 UNIT/5 ML UDCUP PO SCH ×4 (09:19→22:21)
[2019-05-12] MEDS: carvediloL 3.125 MG TABLET PO SCH ×2 (09:19→22:17)
[2019-05-12] MEDS: PANTOPRAZOLE 40 MG TABLET PO SCH (09:19)
[2019-05-12] MEDS: MAGNESIUM OXIDE 400 MG TABLET PO SCH ×2 (09:19→22:18)
[2019-05-12] MEDS: BUDESONIDE/FORMOTEROL 160-4.5 INHALER 6 GM INH SCH ×2 (09:20→22:19)
[2019-05-12] MEDS: DOCUSATE SODIUM 100 MG CAPSULE PO SCH (09:20)
[2019-05-12] MEDS: SPIRONOLACTONE 25 MG TABLET PO SCH (09:20)
[2019-05-12] MEDS: buPROPion 75 MG TABLET PO SCH ×2 (09:20→22:15)
[2019-05-12] MEDS: ENOXAPARIN 40 MG/0.4 ML SYRINGE SUBCUT SCH (13:29)
[2019-05-12] MEDS: acetaZOLAMIDE 250 MG TABLET PO SCH (22:15)
[2019-05-12] MEDS: ASPIRIN EC 81 MG TABLET PO SCH (22:15)
[2019-05-12] MEDS: ZALEPLON 5 MG CAPSULE PO PRN (22:16)
[2019-05-12] MEDS: ROSUVASTATIN 20 MG TABLET PO SCH (22:16)
[2019-05-13] MEDS: ALBUTEROL/IPRATROPIUM 3 ML NEB RESP TX SCH ×4 (00:13→19:30)
[2019-05-13] MEDS: ACETYLCYSTEINE 20% 800 MG/4 ML VIAL RESP TX SCH ×5 (00:13→19:30)
[2019-05-13 06:53] LABS: Calcium 8.5 MG/DL (8.5-10.1); Osmolality,Calculated 269.7 MOS/KG (273-304)
[2019-05-13] MEDS: PIPERACILLIN/TAZOBACTAM 3,375 MG in SODIUM CHLORIDE 0.9% 100 ML IV SCH ×3 (07:05→21:25)
[2019-05-13] MEDS: POTASSIUM CHLORIDE 20 MEQ TABLET PO PRN (07:09)
[2019-05-13] MEDS: BUDESONIDE/FORMOTEROL 160-4.5 INHALER 6 GM INH SCH ×2 (11:00→21:28)
[2019-05-13] MEDS: DOCUSATE SODIUM 100 MG CAPSULE PO SCH (11:01)
[2019-05-13] MEDS: buPROPion 75 MG TABLET PO SCH ×2 (11:01→21:24)
[2019-05-13] MEDS: MAGNESIUM OXIDE 400 MG TABLET PO SCH ×2 (11:01→21:24)
[2019-05-13] MEDS: PANTOPRAZOLE 40 MG TABLET PO SCH (11:02)
[2019-05-13] MEDS: NYSTATIN 500,000 UNIT/5 ML UDCUP PO SCH ×4 (11:02→21:25)
[2019-05-13] MEDS: POTASSIUM CHLORIDE 20 MEQ TABLET PO SCH ×3 (11:03→16:17)
[2019-05-13] MEDS: INSULIN REGULAR 100 UNIT/ML SUBCUT SCH ×4 (11:03→21:24)
[2019-05-13] MEDS: SPIRONOLACTONE 25 MG TABLET PO SCH (11:04)
[2019-05-13] MEDS: carvediloL 3.125 MG TABLET PO SCH ×2 (11:04→21:28)
[2019-05-13] MEDS: acetaZOLAMIDE 250 MG TABLET PO SCH ×2 (11:20→21:23)
[2019-05-13] MEDS: FUROSEMIDE 40 MG/4 ML VIAL IV SCH ×3 (12:56→15:23)
[2019-05-13] MEDS: ENOXAPARIN 40 MG/0.4 ML SYRINGE SUBCUT SCH (14:00)
[2019-05-13] MEDS: ROSUVASTATIN 20 MG TABLET PO SCH (21:24)
[2019-05-13] MEDS: ASPIRIN EC 81 MG TABLET PO SCH (21:24)
[2019-05-14] MEDS: ALBUTEROL/IPRATROPIUM 3 ML NEB RESP TX SCH ×4 (00:26→19:52)
[2019-05-14] MEDS: ACETYLCYSTEINE 20% 800 MG/4 ML VIAL RESP TX SCH ×4 (00:26→19:52)
[2019-05-14 04:52] LABS: Calcium 8.4 MG/DL (8.5-10.1); Osmolality,Calculated 276.1 MOS/KG (273-304)
[2019-05-14] MEDS: PIPERACILLIN/TAZOBACTAM 3,375 MG in SODIUM CHLORIDE 0.9% 100 ML IV SCH ×3 (06:05→21:30)
[2019-05-14] MEDS: acetaZOLAMIDE 250 MG TABLET PO SCH ×2 (08:46→21:27)
[2019-05-14] MEDS: INSULIN REGULAR 100 UNIT/ML SUBCUT SCH ×4 (08:47→21:31)
[2019-05-14] MEDS: FUROSEMIDE 40 MG/4 ML VIAL IV SCH ×2 (08:47→16:45)
[2019-05-14] MEDS: carvediloL 3.125 MG TABLET PO SCH ×2 (08:48→21:31)
[2019-05-14] MEDS: MAGNESIUM OXIDE 400 MG TABLET PO SCH ×2 (08:48→21:29)
[2019-05-14] MEDS: DOCUSATE SODIUM 100 MG CAPSULE PO SCH (08:48)
[2019-05-14] MEDS: PANTOPRAZOLE 40 MG TABLET PO SCH (08:48)
[2019-05-14] MEDS: buPROPion 75 MG TABLET PO SCH ×2 (08:48→21:30)
[2019-05-14] MEDS: NYSTATIN 500,000 UNIT/5 ML UDCUP PO SCH ×4 (08:49→21:30)
[2019-05-14] MEDS: BUDESONIDE/FORMOTEROL 160-4.5 INHALER 6 GM INH SCH ×2 (08:49→21:30)
[2019-05-14] MEDS: POTASSIUM CHLORIDE 20 MEQ TABLET PO SCH ×3 (08:58→16:46)
[2019-05-14] MEDS ORDERED: GLUCAGON 1 MG VIAL IM PRN (09:28)
[2019-05-14] MEDS ORDERED: DEXTROSE 50% 25 GM/50 ML VIAL IV PRN (09:28)
[2019-05-14 09:47] LABS: ABG Base Excess 5.4 MMOL/L (-2.5-2.5); ABG HCO3 29.3 MMOL/L (20-26); ABG Oxygen Saturation 98.4 % (95-100); ABG PCO2 55.2 MM HG (35-48); ABG PH 7.374 (7.35-7.45); ABG TCO2 28.7 MMOL/L (23-27)
[2019-05-14] MEDS: SODIUM CHLORIDE 0.9% 1,000 ML IV SCH (13:49)
[2019-05-14] MEDS: ENOXAPARIN 40 MG/0.4 ML SYRINGE SUBCUT SCH (13:50)
[2019-05-14] MEDS: CHLORHEXIDINE 4% SOLN 118 ML BOTTLE TOP SCH ×2 (14:03→21:42)
[2019-05-14] MEDS: MIDODRINE 5 MG TABLET PO SCH ×2 (16:44→21:27)
[2019-05-14] MEDS ORDERED: MAGNESIUM HYDROXIDE SUSP 30 ML UDCUP PO PRN (17:50)
[2019-05-14] MEDS: POLYETHYLENE GLYCOL POWDER 17 GM PACK PO SCH (18:34)
[2019-05-14] MEDS: ROSUVASTATIN 20 MG TABLET PO SCH (21:27)
[2019-05-14] MEDS: ASPIRIN EC 81 MG TABLET PO SCH (21:31)
[2019-05-14] MEDS: CHLORHEXIDINE 0.12% ORAL RINSE 60 ML BOTTLE SWISH/SPIT SCH (21:32)
[2019-05-15] MEDS: ACETYLCYSTEINE 20% 800 MG/4 ML VIAL RESP TX SCH ×4 (01:00→19:26)
[2019-05-15] MEDS: ALBUTEROL/IPRATROPIUM 3 ML NEB RESP TX SCH ×4 (01:00→19:26)
[2019-05-15] MEDS ORDERED: CEFUROXIME INJ 1,500 MG in SYRINGE 1 EACH IV ONE (05:00)
[2019-05-15 05:37] LABS: Basophils % 1.1 % (0.0-0.8); Eosinophils # 0.5 10*3/uL (0.0-0.87); Eosinophils % 12.6 % (0.00-10.9); Hemoglobin 11.3 GM/DL (14.0-18.0); Immature Granulocytes % 0.6 %; Immature Granulocytes Absolute 0.02 #; Lymphocytes # 0.7 10*3/uL (1.4-4.0); Lymphocytes % 19.6 % (21.2-54.2); Mean Corpuscular HGB Conc 31.4 GM/DL (32-36); Mean Corpuscular Volume 86.7 FL (87-102); Mean Platelet Volume 10.5 FL (9.6-12.0); Monocytes % 17.9 % (1.7-12.7); Neutrophils % 48.2 % (38.7-73.9); Platelet Count 171 T/CUMM (130-400); Red Blood Count 4.15 MC/CUMM (3.8-5.5); White Blood Count 3.6 T/CUMM (4-12)
[2019-05-15] MEDS: PIPERACILLIN/TAZOBACTAM 3,375 MG in SODIUM CHLORIDE 0.9% 100 ML IV SCH ×3 (05:46→20:38)
[2019-05-15 06:18] LABS: Eosinophils 13 % (0-10); Hypochromasia 1+; Lymphocytes 8 % (20-55); Microcytosis 1+; Platelet Estimate Adequate; Segmented Neutrophils 73 % (50-85); Total Cells Counted 100
[2019-05-15 06:26] LABS: Calcium 8.4 MG/DL (8.5-10.1)
[2019-05-15] MEDS: CHLORHEXIDINE 4% SOLN 118 ML BOTTLE TOP SCH (10:00)
[2019-05-15] MEDS: INSULIN REGULAR 100 UNIT/ML SUBCUT SCH ×4 (10:08→20:37)
[2019-05-15] MEDS ORDERED: POTASSIUM CHLORIDE RIDER 10 MEQ in PREMIX 1 EACH IV PRN (10:09)
[2019-05-15] MEDS: DOCUSATE SODIUM 100 MG CAPSULE PO SCH (10:09)
[2019-05-15] MEDS ORDERED: MAGNESIUM SULF RIDER 2 GM in PREMIX 1 EACH IV PRN (10:09)
[2019-05-15] MEDS: acetaZOLAMIDE 250 MG TABLET PO SCH ×2 (10:10→20:36)
[2019-05-15] MEDS: carvediloL 3.125 MG TABLET PO SCH ×2 (10:10→20:37)
[2019-05-15] MEDS: POLYETHYLENE GLYCOL POWDER 17 GM PACK PO SCH (10:11)
[2019-05-15] MEDS: NYSTATIN 500,000 UNIT/5 ML UDCUP PO SCH ×4 (10:11→20:38)
[2019-05-15] MEDS: MAGNESIUM OXIDE 400 MG TABLET PO SCH ×2 (10:11→20:36)
[2019-05-15] MEDS: CHLORHEXIDINE 0.12% ORAL RINSE 60 ML BOTTLE SWISH/SPIT SCH ×2 (10:12→20:37)
[2019-05-15] MEDS: BUDESONIDE/FORMOTEROL 160-4.5 INHALER 6 GM INH SCH ×2 (10:12→20:38)
[2019-05-15] MEDS: buPROPion 75 MG TABLET PO SCH ×2 (10:12→20:37)
[2019-05-15] MEDS: MIDODRINE 5 MG TABLET PO SCH ×3 (10:12→20:37)
[2019-05-15] MEDS: PANTOPRAZOLE 40 MG TABLET PO SCH (10:12)
[2019-05-15] MEDS ORDERED: LIDOCAINE 1% 20 ML VIAL ONE ×2 (11:04→11:41)
[2019-05-15] MEDS ORDERED: fentaNYL 100 MCG/2 ML VIAL ONE (11:04)
[2019-05-15] MEDS ORDERED: MIDAZOLAM 2 MG/2 ML VIAL ONE (11:04)
[2019-05-15] MEDS ORDERED: HEPARIN 5,000 UNIT/1 ML VIAL ONE (11:45)
[2019-05-15] MEDS: SODIUM CHLORIDE 0.9% 1,000 ML IV SCH (12:00)
[2019-05-15] MEDS: ASPIRIN CHEW 81 MG TABLET PO SCH (13:50)
[2019-05-15] MEDS: FUROSEMIDE 40 MG/4 ML VIAL IV SCH ×2 (13:50→16:19)
[2019-05-15] MEDS ORDERED: ENOXAPARIN 80 MG/0.8 ML SYRINGE SUBCUT ONE (17:00)
[2019-05-15] MEDS: ROSUVASTATIN 20 MG TABLET PO SCH (20:36)
[2019-05-15] MEDS: POTASSIUM CHLORIDE 20 MEQ TABLET PO PRN (20:46)
[2019-05-16] MEDS: ACETYLCYSTEINE 20% 800 MG/4 ML VIAL RESP TX SCH ×2 (01:34→07:49)
[2019-05-16] MEDS: ALBUTEROL/IPRATROPIUM 3 ML NEB RESP TX SCH ×3 (01:34→20:28)
[2019-05-16 04:25] LABS: Basophils % 0.4 % (0.0-0.8); Eosinophils # 0.4 10*3/uL (0.0-0.87); Eosinophils % 8.1 % (0.00-10.9); Hematocrit 38.8 VOL% (42.0-52.0); Hemoglobin 12.2 GM/DL (14.0-18.0); Immature Granulocytes % 0.2 %; Immature Granulocytes Absolute 0.01 #; Lymphocytes # 0.8 10*3/uL (1.4-4.0); Mean Corpuscular HGB Conc 31.4 GM/DL (32-36); Mean Corpuscular Volume 86.2 FL (87-102); Mean Platelet Volume 10.4 FL (9.6-12.0); Monocytes % 16.4 % (1.7-12.7); Neutrophils % 58.9 % (38.7-73.9); Platelet Count 156 T/CUMM (130-400); Red Cell Distribution Width 14.2 % (9.3-17.3); White Blood Count 4.7 T/CUMM (4-12)
[2019-05-16 04:37] LABS: PT Patient Result 10.6 SECS (9.6-12.2); Partial Thromboplastin Time 25.7 SECS (20.8-36.0)
[2019-05-16 04:40] LABS: Calcium 8.4 MG/DL (8.5-10.1); Osmolality,Calculated 274.2 MOS/KG (273-304)
[2019-05-16] MEDS ORDERED: VANCOMYCIN 500 MG VIAL ONE (04:47)
[2019-05-16] MEDS ORDERED: PAPAVERINE 60 MG/2 ML VIAL ONE (04:47)
[2019-05-16] MEDS ORDERED: VANCOMYCIN 1,000 MG VIAL ONE (04:47)
[2019-05-16 04:49] LABS: Eosinophils 11 % (0-10); Hypochromasia 1+; Lymphocytes 11 % (20-55); Ovalocytes Slight; Platelet Estimate Adequate; Segmented Neutrophils 65 % (50-85); Total Cells Counted 100
[2019-05-16 04:50] LABS: Microcytosis Slight
[2019-05-16] MEDS ORDERED: DIAZEPAM 5 MG TABLET PO ONE (05:00)
[2019-05-16] MEDS ORDERED: CALCIUM CHLORIDE 1,000 MG/10 ML VIAL IV ONE (05:52)
[2019-05-16] MEDS ORDERED: SUFentanil 250 MCG/5 ML AMP ONE (05:52)
[2019-05-16] MEDS ORDERED: MINERAL OIL/PETROLATUM OPH OINT 3.5 GM TUBE ONE (05:52)
[2019-05-16] MEDS ORDERED: MIDAZOLAM 10 MG/2 ML VIAL ONE (05:52)
[2019-05-16] MEDS ORDERED: VECURONIUM 10 MG VIAL IV ONE (05:53)
[2019-05-16] MEDS ORDERED: AMINOCAPROIC ACID 5,000 MG/20 ML VIAL ONE (05:53)
[2019-05-16] MEDS ORDERED: CEFUROXIME 1,500 MG VIAL ONE (06:54)
[2019-05-16] MEDS ORDERED: NITROPRUSSIDE 50 MG/2 ML VIAL ONE (07:05)
[2019-05-16] MEDS ORDERED: POTASSIUM CHLORIDE RIDER 100 ML IV ONE (07:05)
[2019-05-16] MEDS ORDERED: CALCIUM CHLORIDE 1,000 MG/10 ML SYRINGE IV ONE (07:05)
[2019-05-16] MEDS ORDERED: PHENYLEPHRINE DRIP 40 MG/250 ML PREMIX IV ONE (07:05)
[2019-05-16] MEDS ORDERED: SODIUM BICARBONATE 50 MEQ/50 ML VIAL IV ONE ×2 (07:05→10:01)
[2019-05-16] MEDS ORDERED: ALBUMIN 5% 12.5 GM/250 ML VIAL IV ONE ×2 (07:17)
[2019-05-16 07:55] LABS: ABG Base Excess 2.4 MMOL/L (-2.5-2.5); ABG HCO3 26.6 MMOL/L (20-26); ABG PCO2 37.8 MM HG (35-48); ABG PH 7.451 (7.35-7.45); Glucose Heart Surgery 184 MG/DL (74-106); Hematocrit Heart Surgery 38.8 PERCENT (42-52); Hemoglobin Heart Surgery 12.6 G/DL (14.0-18.0); Ionized Calcium Arterial 1.15 MMOL/L (1.21-1.46); PCO2 Patient Temp Arterial 37.8 MMHG; PH Patient Temp Arterial 7.451; Patient Temperature 37 CELCIUS; Potassium Heart/CVR 3.2 MMOL/L (3.5-5.1); Sodium Heart/CVR 134 MMOL/L (135-145)
[2019-05-16 08:46] LABS: Hematocrit Heart Surgery 25.4 PERCENT (42-52); Hemoglobin Heart Surgery 8.2 G/DL (14.0-18.0); PCO2 Patient Temp Venous 41.6 MM HG; PH Patient Temp Venous 7.433; PO2 Patient Temp Venous 37.4 MM HG; Potassium Heart/CVR 3.5 MMOL/L (3.5-5.1); VBG Base Excess 3.3 MEQ/L (0-4); VBG HCO3 27.1 MEQ/L (24-28); VBG Oxygen Saturation 78.2 %; VBG PCO2 43.6 MMHG (41-51); VBG PH 7.418; VBG PO2 40.1 MMHG (17-40)
[2019-05-16 08:53] LABS: Amorphous Crystals,Urine Moderate /HPF (Few); Apearance,Urine CLOUDY (Clear); Bilirubin,Urine Negative (Negative); Blood, Urine Negative (Negative); Glucose,Urine (UA) 50 mg/dL (Negative); Ketones,Urine 5 mg/dL (Negative); Nitrite,Urine Negative (Negative); Protein,Urine 30 MG/DL; RBC,Urine 2 /HPF (0-4); Squamous Epithelial Cell,Urine Occasional /HPF (0-10); Urine Color Yellow (Yellow); Urine Specific Gravity 1.014 (1.001-1.035); Urine Urobilinogen < 2.0 EU/DL (0.2-1.0)
[2019-05-16] MEDS: INSULIN REGULAR 100 UNIT/ML SUBCUT SCH (09:15)
[2019-05-16] MEDS: FUROSEMIDE 40 MG/4 ML VIAL IV SCH (09:15)
[2019-05-16 09:18] LABS: Hematocrit Heart Surgery 28.7 PERCENT (42-52); Hemoglobin Heart Surgery 9.2 G/DL (14.0-18.0); PCO2 Patient Temp Venous 32.4 MM HG; PH Patient Temp Venous 7.516; Potassium Heart/CVR 3.1 MMOL/L (3.5-5.1); VBG Base Excess 3.7 MEQ/L (0-4); VBG HCO3 27.5 MEQ/L (24-28); VBG Oxygen Saturation 84.8 %; VBG PCO2 39.3 MMHG (41-51); VBG PH 7.456; VBG PO2 44.9 MMHG (17-40)
[2019-05-16] MEDS: acetaZOLAMIDE 250 MG TABLET PO SCH (09:48)
[2019-05-16] MEDS: MAGNESIUM OXIDE 400 MG TABLET PO SCH (09:48)
[2019-05-16] MEDS: DOCUSATE SODIUM 100 MG CAPSULE PO SCH (09:48)
[2019-05-16] MEDS: POLYETHYLENE GLYCOL POWDER 17 GM PACK PO SCH (09:48)
[2019-05-16] MEDS: ASPIRIN CHEW 81 MG TABLET PO SCH (09:48)
[2019-05-16] MEDS: carvediloL 3.125 MG TABLET PO SCH (09:48)
[2019-05-16] MEDS: NYSTATIN 500,000 UNIT/5 ML UDCUP PO SCH (09:49)
[2019-05-16] MEDS: MIDODRINE 5 MG TABLET PO SCH (09:49)
[2019-05-16] MEDS: buPROPion 75 MG TABLET PO SCH (09:49)
[2019-05-16] MEDS: BUDESONIDE/FORMOTEROL 160-4.5 INHALER 6 GM INH SCH (09:49)
[2019-05-16] MEDS: CHLORHEXIDINE 0.12% ORAL RINSE 60 ML BOTTLE SWISH/SPIT SCH ×2 (09:49→22:00)
[2019-05-16] MEDS: PANTOPRAZOLE 40 MG TABLET PO SCH (09:49)
[2019-05-16] MEDS ORDERED: MANNITOL 100 GM/500 ML BAG IV ONE (10:00)
[2019-05-16] MEDS ORDERED: DEXTROSE 5% KCL 20 MEQ 20 MEQ/1,000 ML BAG IV ONE (10:01)
[2019-05-16] MEDS ORDERED: PROTAMINE SULFATE 250 MG/25 ML VIAL IV ONE (10:01)
[2019-05-16] MEDS ORDERED: ALBUMIN 25% 25 GM/100 ML VIAL IV ONE (10:01)
[2019-05-16] MEDS ORDERED: HEPARIN 10,000 UNIT/10 ML VIAL ONE (10:01)
[2019-05-16] MEDS ORDERED: MAGNESIUM SULFATE 5 GM/10 ML VIAL IV ONE (10:01)
[2019-05-16] MEDS ORDERED: LIDOCAINE 2% 5 ML VIAL ONE ×2 (10:01→11:25)
[2019-05-16] MEDS ORDERED: methylPREDNISolone SOD SUC 1,000 MG/8 ML VIAL ONE (10:01)
[2019-05-16] MEDS ORDERED: FUROSEMIDE 20 MG/2 ML VIAL ONE (10:02)
[2019-05-16] MEDS ORDERED: POTASSIUM CHLORIDE 20 MEQ/10 ML VIAL ONE (10:03)
[2019-05-16] MEDS ORDERED: PROTAMINE SULFATE 50 MG/5 ML VIAL IV ONE ×3 (10:03→11:37)
[2019-05-16 10:14] LABS: ABG Base Excess 0.8 MMOL/L (-2.5-2.5); ABG HCO3 25.2 MMOL/L (20-26); ABG PCO2 33.5 MM HG (35-48); ABG PH 7.467 (7.35-7.45); ABG TCO2 22.1 MMOL/L (23-27); Glucose Heart Surgery 280 MG/DL (74-106); Hemoglobin Heart Surgery 9.3 G/DL (14.0-18.0); Ionized Calcium Arterial 1.19 MMOL/L (1.21-1.46); PCO2 Patient Temp Arterial 33.5 MMHG; PH Patient Temp Arterial 7.467; Patient Temperature 37 CELCIUS; Potassium Heart/CVR 3.7 MMOL/L (3.5-5.1); Sodium Heart/CVR 129 MMOL/L (135-145)
[2019-05-16] MEDS ORDERED: DOBUTamine 500 MG/250 ML PREMIX IV ONE ×2 (10:43→11:25)
[2019-05-16] MEDS: DOBUTamine 500 MG/250 ML PREMIX IV SCH (11:05)
[2019-05-16] MEDS: PHENYLEPHRINE DRIP 40 MG/250 ML PREMIX IV PRN ×2 (11:05→21:46)
[2019-05-16] MEDS: LACTATED RINGERS 1,000 ML IV PRN ×3 (11:05→20:00)
[2019-05-16] MEDS: SODIUM CHLORIDE 0.45% 1,000 ML IV SCH ×2 (11:05)
[2019-05-16] MEDS ORDERED: LACTATED RINGERS 1,000 ML IV ONE (11:25)
[2019-05-16] MEDS ORDERED: PHENYLEPHRINE DRIP 20 MG/250 ML PREMIX IV ONE (11:25)
[2019-05-16] MEDS ORDERED: SODIUM CHLORIDE 0.9% 1,000 ML IV ONE (11:25)
[2019-05-16] MEDS ORDERED: SEVOFLURANE 1 UNIT/15 MINUTE INH ONE (11:25)
[2019-05-16] MEDS ORDERED: SODIUM CHLORIDE 0.9% 100 ML IV ONE (11:25)
[2019-05-16] MEDS ORDERED: SODIUM CHLORIDE 0.9% 250 ML IV ONE (11:25)
[2019-05-16] MEDS ORDERED: HEPARIN/NACL 0.9% 2 UNITS/ML 500 ML IV ONE (11:25)
[2019-05-16] MEDS ORDERED: ETOMIDATE 40 MG/20 ML VIAL IV ONE (11:25)
[2019-05-16] MEDS ORDERED: diphenhydrAMINE 50 MG/1 ML VIAL ONE (11:25)
[2019-05-16] MEDS ORDERED: MIDAZOLAM 10 MG/2 ML VIAL IV PRN (11:29)
[2019-05-16] MEDS ORDERED: MORPHINE 10 MG/1 ML VIAL IV PRN (11:29)
[2019-05-16] MEDS ORDERED: MAGNESIUM SULF RIDER 2 GM in PREMIX 1 EACH IV PRN (11:29)
[2019-05-16] MEDS ORDERED: DEXTROSE 10% 1,000 ML BAG IV PRN ×2 (11:29)
[2019-05-16] MEDS ORDERED: VECURONIUM 10 MG VIAL IV PRN ×2 (11:29)
[2019-05-16] MEDS ORDERED: ACETAMINOPHEN 650 MG SUPP RECTAL PRN (11:29)
[2019-05-16] MEDS ORDERED: ONDANSETRON 4 MG/2 ML VIAL IV PRN (11:29)
[2019-05-16] MEDS ORDERED: LACTATED RINGERS 250 ML IV PRN (11:29)
[2019-05-16] MEDS ORDERED: INSULIN REGULAR 100 UNIT/ML IV ONE (11:29)
[2019-05-16] MEDS ORDERED: MORPHINE 4 MG/1 ML VIAL IV PRN (11:29)
[2019-05-16] MEDS ORDERED: MIDAZOLAM 2 MG/2 ML VIAL IV PRN (11:29)
[2019-05-16] MEDS ORDERED: NITROPRUSSIDE 100 MG in DEXTROSE 5% 250 ML IV PRN (11:29)
[2019-05-16] MEDS ORDERED: CALCIUM CHLORIDE 1,000 MG/10 ML SYRINGE IV PRN (11:29)
[2019-05-16] MEDS ORDERED: MAGNESIUM SULF RIDER 4 GM in PREMIX 1 EACH IV PRN (11:29)
[2019-05-16] MEDS ORDERED: AMIODARONE INJ 450 MG in DEXTROSE 5% 241 ML IV SCH ×2 (11:30→17:30)
[2019-05-16] MEDS: POTASSIUM CHLORIDE RIDER 20 MEQ in PREMIX 1 EACH IV PRN ×7 (11:45→21:15)
[2019-05-16 11:52] LABS: ABG Base Excess 0.1 MMOL/L (-2.5-2.5); ABG HCO3 24.5 MMOL/L (20-26); ABG PCO2 34.7 MM HG (35-48); ABG PH 7.442 (7.35-7.45); ABG TCO2 21.2 MMOL/L (23-27); Glucose Heart Surgery 287 MG/DL (74-106); Hematocrit Heart Surgery 33.6 PERCENT (42-52); Hemoglobin Heart Surgery 10.9 G/DL (14.0-18.0); Potassium Heart/CVR 3.2 MMOL/L (3.5-5.1)
[2019-05-16 11:54] LABS: Basophils % 0.5 % (0.0-0.8); Eosinophils # 0.1 10*3/uL (0.0-0.87); Eosinophils % 2.3 % (0.00-10.9); Hematocrit 33.6 VOL% (42.0-52.0); Hemoglobin 10.7 GM/DL (14.0-18.0); Immature Granulocytes % 0.5 %; Immature Granulocytes Absolute 0.03 #; Lymphocytes # 0.8 10*3/uL (1.4-4.0); Lymphocytes % 12.6 % (21.2-54.2); Mean Corpuscular HGB Conc 31.8 GM/DL (32-36); Mean Corpuscular Volume 85.5 FL (87-102); Mean Platelet Volume 10.2 FL (9.6-12.0); Monocytes % 7.3 % (1.7-12.7); Neutrophils % 76.8 % (38.7-73.9); Platelet Count 126 T/CUMM (130-400); Red Blood Count 3.93 MC/CUMM (3.8-5.5); Red Cell Distribution Width 14.2 % (9.3-17.3)
[2019-05-16 12:05] LABS: INR 1.4; PT Patient Result 15.1 SECS (9.6-12.2); Partial Thromboplastin Time 27.2 SECS (20.8-36.0)
[2019-05-16] MEDS: ALBUMIN 5% 12.5 GM in PREMIX 1 EACH IV PRN ×3 (12:05→18:45)
[2019-05-16 12:23] LABS: Calcium 8.5 MG/DL (8.5-10.1); Osmolality,Calculated 284.8 MOS/KG (273-304); Total Protein 5.9 G/DL (6.4-8.3)
[2019-05-16] MEDS: INSULIN REGULAR DRIP 100 ML IV SCH (12:45)
[2019-05-16 12:50] LABS: CKMB % 11.3 %
[2019-05-16 12:54] LABS: Troponin I 4.04 NG/ML (0.00-0.045)
[2019-05-16 13:40] LABS: ABG Base Excess -1.3 MMOL/L (-2.5-2.5); ABG HCO3 23.3 MMOL/L (20-26); ABG Oxygen Saturation 99.9 % (95-100); ABG PCO2 34.4 MM HG (35-48); ABG PH 7.424 (7.35-7.45); ABG TCO2 20.3 MMOL/L (23-27); Glucose Heart Surgery 274 MG/DL (74-106); Hematocrit Heart Surgery 32.4 PERCENT (42-52); Hemoglobin Heart Surgery 10.5 G/DL (14.0-18.0); Potassium Heart/CVR 3.5 MMOL/L (3.5-5.1)
[2019-05-16] MEDS: KETOROLAC 30 MG/1 ML VIAL IV SCH ×3 (13:40→23:26)
[2019-05-16] MEDS: SODIUM CHLORIDE 0.9% 1,000 ML IV SCH (13:44)
[2019-05-16] MEDS: INSULIN REGULAR 100 UNIT/ML IV PRN ×2 (14:18→16:36)
[2019-05-16] MEDS: POTASSIUM CHLORIDE RIDER 10 MEQ in PREMIX 1 EACH IV PRN ×2 (14:43→21:47)
[2019-05-16 16:24] LABS: ABG HCO3 25.4 MMOL/L (20-26); ABG Oxygen Saturation 99.5 % (95-100); ABG PCO2 36.2 MM HG (35-48); ABG PH 7.445 (7.35-7.45); ABG TCO2 22.8 MMOL/L (23-27); Glucose Heart Surgery 214 MG/DL (74-106); Hematocrit Heart Surgery 28.9 PERCENT (42-52); Hemoglobin Heart Surgery 9.3 G/DL (14.0-18.0); Potassium Heart/CVR 3.2 MMOL/L (3.5-5.1)
[2019-05-16] MEDS ORDERED: AMIODARONE 150 MG/3 ML VIAL ONE (17:03)
[2019-05-16] MEDS ORDERED: AMIODARONE 450 MG/9 ML VIAL IV ONE (17:05)
[2019-05-16] MEDS ORDERED: AMIODARONE INJ 150 MG in DEXTROSE 5% 100 ML IV ONE (17:29)
[2019-05-16 18:07] LABS: ABG Base Excess -1.1 MMOL/L (-2.5-2.5); ABG HCO3 23.5 MMOL/L (20-26); ABG Oxygen Saturation 99.2 % (95-100); ABG PCO2 41.3 MM HG (35-48); ABG PH 7.373 (7.35-7.45); ABG TCO2 21.7 MMOL/L (23-27); Glucose Heart Surgery 202 MG/DL (74-106); Hematocrit Heart Surgery 33.1 PERCENT (42-52); Hemoglobin Heart Surgery 10.7 G/DL (14.0-18.0)
[2019-05-16] MEDS: PROPOFOL 1,000 MG/100 ML BOTTLE IV SCH (18:35)
[2019-05-16] MEDS: CEFUROXIME INJ 1,500 MG in SYRINGE 1 EACH IV SCH (19:29)
[2019-05-16] MEDS ORDERED: FUROSEMIDE 40 MG/4 ML VIAL IV ONE (20:07)
[2019-05-16 20:11] LABS: ABG Base Excess -1.7 MMOL/L (-2.5-2.5); ABG HCO3 22.8 MMOL/L (20-26); ABG Oxygen Saturation 98.7 % (95-100); ABG PCO2 37.4 MM HG (35-48); ABG PH 7.402 (7.35-7.45); ABG PO2 156.4 MM HG (80-95); ABG TCO2 23.9 MMOL/L (23-27)
[2019-05-16 20:15] LABS: ABG Base Excess -1.5 MMOL/L (-2.5-2.5); ABG HCO3 22.5 MMOL/L (20-26); ABG Oxygen Saturation 98.8 % (95-100); ABG PCO2 35.4 MM HG (35-48); ABG PH 7.422 (7.35-7.45); ABG PO2 170.9 MM HG (80-95); ABG TCO2 23.6 MMOL/L (23-27); Glucose Heart Surgery 157 MG/DL (74-106)
[2019-05-16 20:17] LABS: Potassium Heart/CVR 3.9 MMOL/L (3.5-5.1)
[2019-05-16 20:26] LABS: CKMB % 13.7 %
[2019-05-16 20:34] LABS: Troponin I 6.59 NG/ML (0.00-0.045)
[2019-05-16] MEDS: AMIODARONE INJ 450 MG in DEXTROSE 5% 241 ML IV SCH (23:27)
[2019-05-17] LABS: ABG Base Excess 0.2 MMOL/L (-2.5-2.5); ABG HCO3 24.7 MMOL/L (20-26); ABG Oxygen Saturation 99.7 % (95-100); ABG PCO2 36.6 MM HG (35-48); ABG PH 7.429 (7.35-7.45); ABG TCO2 21.9 MMOL/L (23-27); Glucose Heart Surgery 120 MG/DL (74-106); Hematocrit Heart Surgery 32.4 PERCENT (42-52); Hemoglobin Heart Surgery 10.5 G/DL (14.0-18.0); Potassium Heart/CVR 3.5 MMOL/L (3.5-5.1)
[2019-05-17] MEDS: POTASSIUM CHLORIDE RIDER 20 MEQ in PREMIX 1 EACH IV PRN ×3 (00:07→06:55)
[2019-05-17] MEDS ORDERED: carvediloL 3.125 MG TABLET PO ONE (00:13)
[2019-05-17] MEDS: INSULIN REGULAR DRIP 100 ML IV SCH ×2 (00:26→12:13)
[2019-05-17] MEDS: POTASSIUM CHLORIDE RIDER 10 MEQ in PREMIX 1 EACH IV PRN (00:39)
[2019-05-17] MEDS: ALBUTEROL/IPRATROPIUM 3 ML NEB RESP TX SCH ×4 (01:09→19:27)
[2019-05-17 03:20] LABS: ABG Base Excess -1.2 MMOL/L (-2.5-2.5); ABG HCO3 23.5 MMOL/L (20-26); ABG Oxygen Saturation 99.6 % (95-100); ABG PCO2 35.3 MM HG (35-48); ABG PH 7.419 (7.35-7.45); ABG TCO2 20.6 MMOL/L (23-27); Glucose Heart Surgery 111 MG/DL (74-106); Hematocrit Heart Surgery 32.1 PERCENT (42-52); Hemoglobin Heart Surgery 10.4 G/DL (14.0-18.0)
[2019-05-17 03:28] LABS: Basophils % 0.1 % (0.0-0.8); Hematocrit 31.2 VOL% (42.0-52.0); Hemoglobin 10.1 GM/DL (14.0-18.0); Immature Granulocytes % 0.3 %; Immature Granulocytes Absolute 0.03 #; Lymphocytes # 0.5 10*3/uL (1.4-4.0); Lymphocytes % 4.7 % (21.2-54.2); Mean Corpuscular HGB Conc 32.4 GM/DL (32-36); Mean Corpuscular Volume 84.6 FL (87-102); Mean Platelet Volume 10.4 FL (9.6-12.0); Monocytes % 5.5 % (1.7-12.7); Neutrophils % 89.4 % (38.7-73.9); Platelet Count 112 T/CUMM (130-400); Red Blood Count 3.69 MC/CUMM (3.8-5.5); Red Cell Distribution Width 15.1 % (9.3-17.3); White Blood Count 10.4 T/CUMM (4-12)
[2019-05-17] MEDS: ALBUMIN 5% 12.5 GM in PREMIX 1 EACH IV PRN (03:36)
[2019-05-17 03:46] LABS: CKMB % 14.5 %
[2019-05-17 03:47] LABS: Troponin I 6.42 NG/ML (0.00-0.045)
[2019-05-17 03:49] LABS: Albumin 3.2 G/DL (3.4-5.0); Bilirubin,Direct 0.22 MG/DL (0.0-0.20); Bilirubin,Total 0.6 MG/DL (0.2-1.0); Calcium 8.4 MG/DL (8.5-10.1); Osmolality,Calculated 277.7 MOS/KG (273-304); Total Protein 5.4 G/DL (6.4-8.3)
[2019-05-17 03:54] LABS: Band Neutrophils 2 % (0-10); Lymphocytes 2 % (20-55); Segmented Neutrophils 93 % (50-85); Total Cells Counted 100
[2019-05-17 03:55] LABS: Hypochromasia 1+; Ovalocytes Slight; Platelet Estimate Decreased
[2019-05-17] MEDS: KETOROLAC 30 MG/1 ML VIAL IV SCH ×3 (05:15→16:52)
[2019-05-17] MEDS: PROPOFOL 1,000 MG/100 ML BOTTLE IV SCH (07:04)
[2019-05-17] MEDS: CEFUROXIME INJ 1,500 MG in SYRINGE 1 EACH IV SCH ×2 (07:10→18:27)
[2019-05-17 07:40] LABS: ABG Base Excess -3.1 MMOL/L (-2.5-2.5); ABG HCO3 21.8 MMOL/L (20-26); ABG Oxygen Saturation 99.4 % (95-100); ABG PCO2 35.4 MM HG (35-48); ABG PH 7.389 (7.35-7.45); ABG TCO2 19.6 MMOL/L (23-27); Glucose Heart Surgery 146 MG/DL (74-106); Hematocrit Heart Surgery 29.2 PERCENT (42-52); Hemoglobin Heart Surgery 9.4 G/DL (14.0-18.0); Potassium Heart/CVR 4.5 MMOL/L (3.5-5.1)
[2019-05-17] MEDS ORDERED: FUROSEMIDE 40 MG/4 ML VIAL ONE (09:11)
[2019-05-17] MEDS: FUROSEMIDE 40 MG/4 ML VIAL IV SCH ×2 (09:17→16:10)
[2019-05-17] MEDS: carvediloL 3.125 MG TABLET PO SCH ×2 (09:17→16:10)
[2019-05-17] MEDS: CHLORHEXIDINE 0.12% ORAL RINSE 60 ML BOTTLE SWISH/SPIT SCH ×2 (09:19→20:29)
[2019-05-17 11:05] LABS: ABG Base Excess -3.9 MMOL/L (-2.5-2.5); ABG HCO3 20.2 MMOL/L (20-26); ABG PCO2 33.5 MM HG (35-48); ABG PH 7.399 (7.35-7.45); ABG PO2 192.2 MM HG (80-95); ABG TCO2 21.3 MMOL/L (23-27); Glucose Heart Surgery 152 MG/DL (74-106); Hemoglobin Heart Surgery 10.7 G/DL (14.0-18.0); Potassium Heart/CVR 4.6 MMOL/L (3.5-5.1)
[2019-05-17 11:43] LABS: ABG Base Excess -4.2 MMOL/L (-2.5-2.5); ABG HCO3 20.9 MMOL/L (20-26); ABG Oxygen Saturation 99.7 % (95-100); ABG PCO2 35.9 MM HG (35-48); ABG PH 7.366 (7.35-7.45); ABG TCO2 18.7 MMOL/L (23-27); Glucose Heart Surgery 173 MG/DL (74-106); Hematocrit Heart Surgery 31.7 PERCENT (42-52); Hemoglobin Heart Surgery 10.3 G/DL (14.0-18.0); Potassium Heart/CVR 4.7 MMOL/L (3.5-5.1)
[2019-05-17 12:25] LABS: CKMB % 14.8 %
[2019-05-17 12:26] LABS: Troponin I 3.7 NG/ML (0.00-0.045)
[2019-05-17] MEDS: SODIUM CHLORIDE 0.45% 1,000 ML IV SCH ×2 (12:30→12:31)
[2019-05-17] MEDS: INSULIN REGULAR 100 UNIT/ML SUBCUT SCH ×3 (12:32→20:29)
[2019-05-17 13:14] LABS: ABG Base Excess -4.5 MMOL/L (-2.5-2.5); ABG HCO3 20.7 MMOL/L (20-26); ABG Oxygen Saturation 99.4 % (95-100); ABG PCO2 38.1 MM HG (35-48); ABG PH 7.345 (7.35-7.45); ABG TCO2 18.9 MMOL/L (23-27); Glucose Heart Surgery 185 MG/DL (74-106); Hematocrit Heart Surgery 31.7 PERCENT (42-52); Hemoglobin Heart Surgery 10.3 G/DL (14.0-18.0); Potassium Heart/CVR 4.8 MMOL/L (3.5-5.1)
[2019-05-17] MEDS: DOBUTamine 500 MG/250 ML PREMIX IV SCH (13:46)
[2019-05-17] MEDS: AMIODARONE INJ 450 MG in DEXTROSE 5% 241 ML IV SCH (15:02)
[2019-05-17] MEDS: MIDODRINE 5 MG TABLET PO SCH ×2 (16:09→20:29)
[2019-05-18] MEDS: INSULIN REGULAR 100 UNIT/ML SUBCUT SCH ×4 (00:50→15:03)
[2019-05-18] MEDS: ALBUTEROL/IPRATROPIUM 3 ML NEB RESP TX SCH ×4 (01:47→21:59)
[2019-05-18 04:08] LABS: Basophils % 0.1 % (0.0-0.8); Hematocrit 30.6 VOL% (42.0-52.0); Hemoglobin 9.5 GM/DL (14.0-18.0); Immature Granulocytes % 0.6 %; Immature Granulocytes Absolute 0.06 #; Lymphocytes # 0.5 10*3/uL (1.4-4.0); Lymphocytes % 5.4 % (21.2-54.2); Mean Corpuscular Volume 87.9 FL (87-102); Mean Platelet Volume 10.8 FL (9.6-12.0); Monocytes % 7.3 % (1.7-12.7); Neutrophils % 86.6 % (38.7-73.9); Platelet Count 106 T/CUMM (130-400); Red Blood Count 3.48 MC/CUMM (3.8-5.5); Red Cell Distribution Width 15.7 % (9.3-17.3); White Blood Count 9.9 T/CUMM (4-12)
[2019-05-18 04:28] LABS: Albumin 3.2 G/DL (3.4-5.0); Bilirubin,Direct 0.13 MG/DL (0.0-0.20); Bilirubin,Total 0.4 MG/DL (0.2-1.0); Calcium 8.2 MG/DL (8.5-10.1); Osmolality,Calculated 280.5 MOS/KG (273-304); Total Protein 6.1 G/DL (6.4-8.3)
[2019-05-18] MEDS ORDERED: HEPARIN/NACL 0.9% 2 UNITS/ML 500 ML IV ONE (06:32)
[2019-05-18 06:38] LABS: VBG Base Excess -1.1 MEQ/L (0-4); VBG HCO3 22.7 MEQ/L (24-28); VBG Oxygen Saturation 45.3 %; VBG PCO2 51.2 MMHG (41-51); VBG PH 7.308; VBG PO2 26.9 MMHG (17-40)
[2019-05-18] MEDS ORDERED: MAGNESIUM HYDROXIDE SUSP 30 ML UDCUP PO PRN ×2 (08:05→15:05)
[2019-05-18] MEDS: MIDODRINE 5 MG TABLET PO SCH ×2 (10:45→18:08)
[2019-05-18] MEDS: carvediloL 3.125 MG TABLET PO SCH ×2 (10:46→16:10)
[2019-05-18] MEDS: AMIODARONE 200 MG TABLET PO SCH ×2 (10:46→20:41)
[2019-05-18] MEDS: FUROSEMIDE 40 MG/4 ML VIAL IV SCH (10:47)
[2019-05-18] MEDS: CHLORHEXIDINE 0.12% ORAL RINSE 60 ML BOTTLE SWISH/SPIT SCH ×2 (11:01→20:40)
[2019-05-18] MEDS: AMIODARONE INJ 450 MG in DEXTROSE 5% 241 ML IV SCH (11:01)
[2019-05-18] MEDS: SODIUM CHLORIDE 0.45% 1,000 ML IV SCH ×2 (14:55→14:56)
[2019-05-18] MEDS: DOBUTamine 500 MG/250 ML PREMIX IV SCH (15:04)
[2019-05-18] MEDS ORDERED: SODIUM CHLOR 0.45% KCL 20 MEQ 20 MEQ/1,000 ML BAG IV SCH (15:05)
[2019-05-18] MEDS ORDERED: KETOROLAC 30 MG/1 ML VIAL IV PRN (15:05)
[2019-05-18] MEDS ORDERED: GLUCAGON 1 MG VIAL IM PRN ×2 (15:05)
[2019-05-18] MEDS ORDERED: ACETAMINOPHEN 325 MG TABLET PO PRN (15:05)
[2019-05-18] MEDS ORDERED: DEXTROSE 10% 1,000 ML BAG IV PRN (15:05)
[2019-05-18] MEDS ORDERED: DEXTROSE 50% 25 GM/50 ML VIAL IV PRN (15:05)
[2019-05-18] MEDS ORDERED: ALUMINUM/MAGNES/SIMETH MAX STR 30 ML UDCUP PO PRN (15:05)
[2019-05-18] MEDS ORDERED: MAGNESIUM SULF RIDER 4 GM in PREMIX 1 EACH IV PRN (15:05)
[2019-05-18] MEDS: sitaGLIPtin 100 MG TABLET PO SCH (20:38)
[2019-05-18] MEDS: GLIMEPIRIDE 4 MG TABLET PO SCH (20:38)
[2019-05-18] MEDS: SIMVASTATIN 20 MG TABLET PO SCH (20:39)
[2019-05-18] MEDS: oxyCODONE/ACETAMINOPHEN 5-325 MG TABLET PO PRN (20:39)
[2019-05-18] MEDS: metFORMIN 500 MG TABLET PO SCH (20:39)
[2019-05-18] MEDS ORDERED: carvediloL 3.125 MG TABLET PO SCH (21:00)
[2019-05-19] MEDS: ALBUTEROL/IPRATROPIUM 3 ML NEB RESP TX SCH ×4 (00:13→20:16)
[2019-05-19 05:24] LABS: Basophils % 0.1 % (0.0-0.8); Eosinophils % 0.2 % (0.00-10.9); Hematocrit 32.5 VOL% (42.0-52.0); Hemoglobin 10.3 GM/DL (14.0-18.0); Immature Granulocytes % 0.5 %; Immature Granulocytes Absolute 0.05 #; Lymphocytes # 0.9 10*3/uL (1.4-4.0); Lymphocytes % 7.9 % (21.2-54.2); Mean Corpuscular HGB Conc 31.7 GM/DL (32-36); Mean Corpuscular Volume 87.6 FL (87-102); Mean Platelet Volume 11.5 FL (9.6-12.0); Neutrophils % 83.3 % (38.7-73.9); Platelet Count 136 T/CUMM (130-400); Red Blood Count 3.71 MC/CUMM (3.8-5.5); Red Cell Distribution Width 15.4 % (9.3-17.3); White Blood Count 10.8 T/CUMM (4-12)
[2019-05-19 05:56] LABS: Albumin 3.4 G/DL (3.4-5.0); Bilirubin,Direct 0.19 MG/DL (0.0-0.20); Bilirubin,Indirect 0.5 MG/DL (0.0-1.0); Bilirubin,Total 0.7 MG/DL (0.2-1.0); CKMB % 7.7 %; Calcium 8.6 MG/DL (8.5-10.1); Osmolality,Calculated 279.2 MOS/KG (273-304); Total Protein 6.5 G/DL (6.4-8.3)
[2019-05-19 05:57] LABS: Troponin I 2.96 NG/ML (0.00-0.045)
[2019-05-19] MEDS ORDERED: FUROSEMIDE 40 MG/4 ML VIAL IV ONE (06:00)
[2019-05-19] MEDS: MAGNESIUM SULF RIDER 2 GM in PREMIX 1 EACH IV PRN (06:29)
[2019-05-19] MEDS: GLIMEPIRIDE 4 MG TABLET PO SCH ×2 (09:05→21:13)
[2019-05-19] MEDS: ASPIRIN EC 325 MG TABLET PO SCH (09:05)
[2019-05-19] MEDS: FERROUS SULFATE 325 MG TABLET PO SCH (09:05)
[2019-05-19] MEDS: DOCUSATE SODIUM 100 MG CAPSULE PO SCH (09:05)
[2019-05-19] MEDS: metFORMIN 500 MG TABLET PO SCH ×2 (09:05→21:13)
[2019-05-19] MEDS: PANTOPRAZOLE 40 MG TABLET PO SCH (09:05)
[2019-05-19] MEDS: AMIODARONE 200 MG TABLET PO SCH ×2 (09:05→21:13)
[2019-05-19] MEDS: BUMETANIDE 1 MG TABLET PO SCH (09:06)
[2019-05-19] MEDS: carvediloL 3.125 MG TABLET PO SCH ×2 (09:12→17:47)
[2019-05-19] MEDS: CHLORHEXIDINE 0.12% ORAL RINSE 60 ML BOTTLE SWISH/SPIT SCH ×2 (09:12→21:14)
[2019-05-19] MEDS: MIDODRINE 5 MG TABLET PO SCH ×2 (15:50→21:14)
[2019-05-19] MEDS: oxyCODONE/ACETAMINOPHEN 5-325 MG TABLET PO PRN (18:02)
[2019-05-19] MEDS: ONDANSETRON 4 MG/2 ML VIAL IV PRN (21:10)
[2019-05-19] MEDS: SIMVASTATIN 20 MG TABLET PO SCH (21:14)
[2019-05-19] MEDS: sitaGLIPtin 100 MG TABLET PO SCH (21:14)
[2019-05-20] MEDS: ALBUTEROL/IPRATROPIUM 3 ML NEB RESP TX SCH ×4 (01:11→19:38)
[2019-05-20 05:36] LABS: Basophils % 0.1 % (0.0-0.8); Eosinophils % 0.3 % (0.00-10.9); Hematocrit 30.8 VOL% (42.0-52.0); Hemoglobin 9.7 GM/DL (14.0-18.0); Immature Granulocytes Absolute 0.09 #; Lymphocytes % 10.8 % (21.2-54.2); Mean Corpuscular HGB Conc 31.5 GM/DL (32-36); Mean Platelet Volume 11.3 FL (9.6-12.0); Monocytes % 9.9 % (1.7-12.7); Neutrophils % 77.9 % (38.7-73.9); Platelet Count 153 T/CUMM (130-400); Red Cell Distribution Width 15.2 % (9.3-17.3); White Blood Count 8.8 T/CUMM (4-12)
[2019-05-20 06:14] LABS: Alanine Aminotransferase 24 U/L (16-61); Albumin 3.4 G/DL (3.4-5.0); Alkaline Phosphatase 62 U/L (45-117); Aspartate Amino Transferase 19 U/L (0-37); Bilirubin,Indirect 0.6 MG/DL (0.0-1.0); Blood Urea Nitrogen 42 MG/DL (7-18); Calcium 8.5 MG/DL (8.5-10.1); Estimated Glom Filtration Rate 73 ML/MIN; Glucose 215 MG/DL (74-106); Osmolality,Calculated 280.5 MOS/KG (273-304); Total Protein 6.8 G/DL (6.4-8.3)
[2019-05-20] MEDS: FERROUS SULFATE 325 MG TABLET PO SCH (10:06)
[2019-05-20] MEDS: GLIMEPIRIDE 4 MG TABLET PO SCH ×2 (10:06→22:43)
[2019-05-20] MEDS: metFORMIN 500 MG TABLET PO SCH ×2 (10:06→22:40)
[2019-05-20] MEDS: AMIODARONE 200 MG TABLET PO SCH ×2 (10:06→22:43)
[2019-05-20] MEDS: ASPIRIN EC 325 MG TABLET PO SCH (10:06)
[2019-05-20] MEDS: CHLORHEXIDINE 0.12% ORAL RINSE 60 ML BOTTLE SWISH/SPIT SCH ×2 (10:07→22:48)
[2019-05-20] MEDS: PANTOPRAZOLE 40 MG TABLET PO SCH (10:07)
[2019-05-20] MEDS: DOCUSATE SODIUM 100 MG CAPSULE PO SCH (10:07)
[2019-05-20] MEDS: carvediloL 3.125 MG TABLET PO SCH ×2 (10:07→16:54)
[2019-05-20] MEDS: MIDODRINE 5 MG TABLET PO SCH ×3 (10:11→22:44)
[2019-05-20] MEDS: BUMETANIDE 1 MG TABLET PO SCH (10:11)
[2019-05-20] MEDS ORDERED: MAGNESIUM CITRATE 300 ML BOTTLE PO PRN (10:13)
[2019-05-20] MEDS: oxyCODONE/ACETAMINOPHEN 5-325 MG TABLET PO PRN (12:35)
[2019-05-20] MEDS: ONDANSETRON 4 MG/2 ML VIAL IV PRN (17:11)
[2019-05-20] MEDS: ROSUVASTATIN 20 MG TABLET PO SCH (22:40)
[2019-05-20] MEDS: sitaGLIPtin 100 MG TABLET PO SCH (22:42)
[2019-05-20] MEDS: ZALEPLON 5 MG CAPSULE PO PRN (22:47)
[2019-05-21] MEDS: ALBUTEROL/IPRATROPIUM 3 ML NEB RESP TX SCH ×4 (00:30→19:48)
[2019-05-21 04:50] LABS: Basophils % 0.2 % (0.0-0.8); Eosinophils # 0.1 10*3/uL (0.0-0.87); Eosinophils % 0.8 % (0.00-10.9); Hematocrit 31.3 VOL% (42.0-52.0); Immature Granulocytes % 1.2 %; Lymphocytes # 0.8 10*3/uL (1.4-4.0); Lymphocytes % 8.8 % (21.2-54.2); Mean Corpuscular HGB Conc 31.9 GM/DL (32-36); Mean Corpuscular Volume 86.9 FL (87-102); Mean Platelet Volume 10.9 FL (9.6-12.0); Platelet Count 206 T/CUMM (130-400); Red Cell Distribution Width 15.1 % (9.3-17.3); White Blood Count 8.6 T/CUMM (4-12)
[2019-05-21 05:14] LABS: Calcium 9.1 MG/DL (8.5-10.1); Osmolality,Calculated 281.9 MOS/KG (273-304)
[2019-05-21] MEDS: metFORMIN 500 MG TABLET PO SCH (08:46)
[2019-05-21] MEDS: ASPIRIN EC 325 MG TABLET PO SCH (08:46)
[2019-05-21] MEDS: MIDODRINE 5 MG TABLET PO SCH ×3 (08:47→22:26)
[2019-05-21] MEDS: AMIODARONE 200 MG TABLET PO SCH ×2 (08:47→22:19)
[2019-05-21] MEDS: GLIMEPIRIDE 4 MG TABLET PO SCH ×2 (08:47→22:19)
[2019-05-21] MEDS: BUMETANIDE 1 MG TABLET PO SCH (08:47)
[2019-05-21] MEDS: PANTOPRAZOLE 40 MG TABLET PO SCH (08:47)
[2019-05-21] MEDS: DOCUSATE SODIUM 100 MG CAPSULE PO SCH (08:47)
[2019-05-21] MEDS: carvediloL 3.125 MG TABLET PO SCH ×2 (08:48→16:50)
[2019-05-21] MEDS: CHLORHEXIDINE 0.12% ORAL RINSE 60 ML BOTTLE SWISH/SPIT SCH ×2 (08:48→22:29)
[2019-05-21] MEDS: FERROUS SULFATE 325 MG TABLET PO SCH (08:48)
[2019-05-21] MEDS ORDERED: INSULIN GLARGINE 100 UNIT/ML SUBCUT SCH (21:00)
[2019-05-21] MEDS: ROSUVASTATIN 20 MG TABLET PO SCH (22:20)
[2019-05-21] MEDS: sitaGLIPtin 100 MG TABLET PO SCH (22:21)
[2019-05-21] MEDS: oxyCODONE/ACETAMINOPHEN 5-325 MG TABLET PO PRN (22:22)
[2019-05-22] MEDS: ONDANSETRON 4 MG/2 ML VIAL IV PRN ×2 (00:13→22:04)
[2019-05-22] MEDS: ALBUTEROL/IPRATROPIUM 3 ML NEB RESP TX SCH ×4 (01:11→19:30)
[2019-05-22 05:46] LABS: Basophils % 0.1 % (0.0-0.8); Hematocrit 30.4 VOL% (42.0-52.0); Hemoglobin 9.7 GM/DL (14.0-18.0); Immature Granulocytes % 1.3 %; Immature Granulocytes Absolute 0.14 #; Lymphocytes # 0.6 10*3/uL (1.4-4.0); Lymphocytes % 5.9 % (21.2-54.2); Mean Corpuscular HGB Conc 31.9 GM/DL (32-36); Mean Corpuscular Volume 86.1 FL (87-102); Mean Platelet Volume 10.6 FL (9.6-12.0); Monocytes % 8.1 % (1.7-12.7); Neutrophils % 84.6 % (38.7-73.9); Platelet Count 260 T/CUMM (130-400); Red Blood Count 3.53 MC/CUMM (3.8-5.5); Red Cell Distribution Width 15.5 % (9.3-17.3); White Blood Count 10.9 T/CUMM (4-12)
[2019-05-22 06:06] LABS: Alanine Aminotransferase 87 U/L (16-61); Albumin 3.4 G/DL (3.4-5.0); Alkaline Phosphatase 75 U/L (45-117); Aspartate Amino Transferase 69 U/L (0-37); Bilirubin,Indirect 0.4 MG/DL (0.0-1.0); Blood Urea Nitrogen 66 MG/DL (7-18); Calcium 8.8 MG/DL (8.5-10.1); Estimated Glom Filtration Rate 53 ML/MIN; Glucose 229 MG/DL (74-106); Osmolality,Calculated 283.9 MOS/KG (273-304); Total Protein 6.9 G/DL (6.4-8.3)
[2019-05-22] MEDS: MIDODRINE 5 MG TABLET PO SCH ×3 (08:43→22:08)
[2019-05-22] MEDS: ASPIRIN EC 325 MG TABLET PO SCH (08:43)
[2019-05-22] MEDS: BUMETANIDE 1 MG TABLET PO SCH (08:43)
[2019-05-22] MEDS: AMIODARONE 200 MG TABLET PO SCH ×2 (08:44→22:07)
[2019-05-22] MEDS: DOCUSATE SODIUM 100 MG CAPSULE PO SCH (08:44)
[2019-05-22] MEDS: carvediloL 3.125 MG TABLET PO SCH (08:44)
[2019-05-22] MEDS: FERROUS SULFATE 325 MG TABLET PO SCH (08:44)
[2019-05-22] MEDS: GLIMEPIRIDE 4 MG TABLET PO SCH ×2 (08:44→22:06)
[2019-05-22] MEDS: PANTOPRAZOLE 40 MG TABLET PO SCH (08:44)
[2019-05-22] MEDS: CHLORHEXIDINE 0.12% ORAL RINSE 60 ML BOTTLE SWISH/SPIT SCH ×2 (08:53→22:15)
[2019-05-22] MEDS: NYSTATIN 500,000 UNIT/5 ML UDCUP SWISH/SWAL SCH ×4 (09:25→22:14)
[2019-05-22] MEDS: SODIUM CHLORIDE 1 GM TABLET PO SCH ×2 (10:07→22:06)
[2019-05-22] MEDS: FLUDROCORTISONE 0.1 MG TABLET PO SCH ×2 (10:07→22:06)
[2019-05-22] MEDS ORDERED: SODIUM PHOSPHATE ENEMA 133 ML BOTTLE RECTAL ONE (12:58)
[2019-05-22] MEDS ORDERED: metOLazone 2.5 MG TABLET PO SCH (14:00)
[2019-05-22] MEDS: INSULIN GLARGINE 100 UNIT/ML SUBCUT SCH (14:09)
[2019-05-22] MEDS: LINACLOTIDE 145 MCG CAPSULE PO SCH (16:31)
[2019-05-22] MEDS: sitaGLIPtin 100 MG TABLET PO SCH (22:07)
[2019-05-22] MEDS: ROSUVASTATIN 20 MG TABLET PO SCH (22:09)
[2019-05-22] MEDS: oxyCODONE/ACETAMINOPHEN 5-325 MG TABLET PO PRN (22:12)
[2019-05-23] MEDS: ALBUTEROL/IPRATROPIUM 3 ML NEB RESP TX SCH ×4 (00:40→19:50)
[2019-05-23 05:23] LABS: Basophils % 0.1 % (0.0-0.8); Eosinophils % 0.4 % (0.00-10.9); Hematocrit 30.5 VOL% (42.0-52.0); Hemoglobin 9.7 GM/DL (14.0-18.0); Immature Granulocytes % 1.5 %; Immature Granulocytes Absolute 0.12 #; Lymphocytes # 0.6 10*3/uL (1.4-4.0); Lymphocytes % 8.2 % (21.2-54.2); Mean Corpuscular HGB Conc 31.8 GM/DL (32-36); Mean Corpuscular Volume 87.1 FL (87-102); Mean Platelet Volume 10.6 FL (9.6-12.0); Monocytes % 10.3 % (1.7-12.7); NRBC # 0.03 10*3/uL; Neutrophils % 79.5 % (38.7-73.9); Platelet Count 282 T/CUMM (130-400); Red Cell Distribution Width 15.5 % (9.3-17.3); White Blood Count 7.8 T/CUMM (4-12)
[2019-05-23 05:44] LABS: Alanine Aminotransferase 113 U/L (16-61); Albumin 3.3 G/DL (3.4-5.0); Alkaline Phosphatase 88 U/L (45-117); Aspartate Amino Transferase 78 U/L (0-37); Bilirubin,Indirect 0.3 MG/DL (0.0-1.0); Blood Urea Nitrogen 70 MG/DL (7-18); Estimated Glom Filtration Rate 61 ML/MIN; Glucose 248 MG/DL (74-106); Osmolality,Calculated 286.9 MOS/KG (273-304); Total Protein 6.9 G/DL (6.4-8.3)
[2019-05-23 05:45] LABS: Troponin I 0.755 NG/ML (0.00-0.045)
[2019-05-23] MEDS ORDERED: SODIUM PHOSPHATE ENEMA 133 ML BOTTLE RECTAL ONE (08:00)
[2019-05-23] MEDS: INSULIN GLARGINE 100 UNIT/ML SUBCUT SCH (09:51)
[2019-05-23] MEDS: MIDODRINE 5 MG TABLET PO SCH ×3 (09:52→21:01)
[2019-05-23] MEDS: LINACLOTIDE 145 MCG CAPSULE PO SCH (09:52)
[2019-05-23] MEDS: FLUDROCORTISONE 0.1 MG TABLET PO SCH ×2 (09:53→21:00)
[2019-05-23] MEDS: METOPROLOL TARTRATE 25 MG TABLET PO SCH ×2 (09:53→21:02)
[2019-05-23] MEDS: FERROUS SULFATE 325 MG TABLET PO SCH (09:53)
[2019-05-23] MEDS: AMIODARONE 200 MG TABLET PO SCH ×2 (09:53→21:01)
[2019-05-23] MEDS: SODIUM CHLORIDE 1 GM TABLET PO SCH ×3 (09:53→21:00)
[2019-05-23] MEDS: ASPIRIN EC 325 MG TABLET PO SCH (09:53)
[2019-05-23] MEDS: DOCUSATE SODIUM 100 MG CAPSULE PO SCH (09:53)
[2019-05-23] MEDS: NYSTATIN 500,000 UNIT/5 ML UDCUP SWISH/SWAL SCH ×4 (09:54→21:01)
[2019-05-23] MEDS: CHLORHEXIDINE 0.12% ORAL RINSE 60 ML BOTTLE SWISH/SPIT SCH ×2 (09:54→21:01)
[2019-05-23] MEDS: GLIMEPIRIDE 4 MG TABLET PO SCH ×2 (09:54→21:00)
[2019-05-23] MEDS: PANTOPRAZOLE 40 MG TABLET PO SCH (09:54)
[2019-05-23] MEDS ORDERED: DEXTROSE 50% 25 GM/50 ML VIAL IV PRN (12:14)
[2019-05-23] MEDS ORDERED: GLUCAGON 1 MG VIAL IM PRN (12:14)
[2019-05-23] MEDS ORDERED: INSULIN GLARGINE 100 UNIT/ML SUBCUT SCH (12:16)
[2019-05-23] MEDS: INSULIN LISPRO 100 UNIT/ML SUBCUT SCH ×2 (17:12→21:01)
[2019-05-23] MEDS: ROSUVASTATIN 20 MG TABLET PO SCH (21:00)
[2019-05-23] MEDS: sitaGLIPtin 100 MG TABLET PO SCH (21:01)
[2019-05-23] MEDS: oxyCODONE/ACETAMINOPHEN 5-325 MG TABLET PO PRN (21:35)
[2019-05-24] MEDS: ALBUTEROL/IPRATROPIUM 3 ML NEB RESP TX SCH ×4 (00:24→19:47)
[2019-05-24 06:57] LABS: Albumin 3.2 G/DL (3.4-5.0); Bilirubin,Total 0.5 MG/DL (0.2-1.0); Calcium 8.6 MG/DL (8.5-10.1); Osmolality,Calculated 280.7 MOS/KG (273-304); Total Protein 6.9 G/DL (6.4-8.3)
[2019-05-24] MEDS: INSULIN LISPRO 100 UNIT/ML SUBCUT SCH (07:28)
[2019-05-24] MEDS ORDERED: DEXTROSE 10% 250 ML IV ONE (07:57)
[2019-05-24] MEDS: GLIMEPIRIDE 4 MG TABLET PO SCH (08:07)
[2019-05-24] MEDS: AMIODARONE 200 MG TABLET PO SCH ×2 (08:39→21:12)
[2019-05-24] MEDS: PANTOPRAZOLE 40 MG TABLET PO SCH (09:33)
[2019-05-24] MEDS: ASPIRIN EC 325 MG TABLET PO SCH (09:33)
[2019-05-24] MEDS: FLUDROCORTISONE 0.1 MG TABLET PO SCH ×2 (09:33→21:13)
[2019-05-24] MEDS: MIDODRINE 5 MG TABLET PO SCH ×3 (09:33→21:13)
[2019-05-24] MEDS: SODIUM CHLORIDE 1 GM TABLET PO SCH ×3 (09:33→21:13)
[2019-05-24] MEDS: DOCUSATE SODIUM 100 MG CAPSULE PO SCH (09:34)
[2019-05-24] MEDS: NYSTATIN 500,000 UNIT/5 ML UDCUP SWISH/SWAL SCH ×4 (09:34→21:13)
[2019-05-24] MEDS: LINACLOTIDE 145 MCG CAPSULE PO SCH (09:34)
[2019-05-24] MEDS: FERROUS SULFATE 325 MG TABLET PO SCH (09:34)
[2019-05-24] MEDS: CHLORHEXIDINE 0.12% ORAL RINSE 60 ML BOTTLE SWISH/SPIT SCH ×2 (09:34→21:13)
[2019-05-24] MEDS: HYDROCORTISONE 100 MG VIAL IV SCH (12:21)
[2019-05-24] MEDS ORDERED: CLORAZEPATE 3.75 MG TABLET PO PRN (18:00)
[2019-05-24] MEDS: ROSUVASTATIN 20 MG TABLET PO SCH (21:13)
[2019-05-24] MEDS: CLORAZEPATE 7.5 MG TABLET PO SCH (21:13)
[2019-05-24] MEDS: ZALEPLON 5 MG CAPSULE PO PRN (23:36)
[2019-05-25] MEDS: ALBUTEROL/IPRATROPIUM 3 ML NEB RESP TX SCH ×4 (00:30→20:39)
[2019-05-25] MEDS ORDERED: FUROSEMIDE 20 MG/2 ML VIAL IV ONE (08:52)
[2019-05-25] MEDS: LINACLOTIDE 145 MCG CAPSULE PO SCH (08:55)
[2019-05-25] MEDS: DOCUSATE SODIUM 100 MG CAPSULE PO SCH (08:55)
[2019-05-25] MEDS: ASPIRIN EC 325 MG TABLET PO SCH (08:55)
[2019-05-25] MEDS: GLIMEPIRIDE 2 MG TABLET PO SCH (08:55)
[2019-05-25] MEDS: MIDODRINE 5 MG TABLET PO SCH ×3 (08:55→20:50)
[2019-05-25] MEDS: SODIUM CHLORIDE 1 GM TABLET PO SCH ×3 (08:55→20:50)
[2019-05-25] MEDS: NYSTATIN 500,000 UNIT/5 ML UDCUP SWISH/SWAL SCH ×4 (08:55→20:50)
[2019-05-25] MEDS: PANTOPRAZOLE 40 MG TABLET PO SCH (08:55)
[2019-05-25] MEDS: INSULIN GLARGINE 100 UNIT/ML SUBCUT SCH (08:56)
[2019-05-25] MEDS: AMIODARONE 200 MG TABLET PO SCH ×2 (08:56→20:51)
[2019-05-25] MEDS: FLUDROCORTISONE 0.1 MG TABLET PO SCH ×2 (08:56→20:50)
[2019-05-25] MEDS: CHLORHEXIDINE 0.12% ORAL RINSE 60 ML BOTTLE SWISH/SPIT SCH ×2 (08:56→20:49)
[2019-05-25] MEDS: FERROUS SULFATE 325 MG TABLET PO SCH (08:56)
[2019-05-25 09:29] LABS: Basophils % 0.1 % (0.0-0.8); Eosinophils # 0.1 10*3/uL (0.0-0.87); Eosinophils % 0.5 % (0.00-10.9); Hematocrit 31.4 VOL% (42.0-52.0); Hemoglobin 9.9 GM/DL (14.0-18.0); Immature Granulocytes % 1.4 %; Immature Granulocytes Absolute 0.14 #; Lymphocytes # 0.8 10*3/uL (1.4-4.0); Lymphocytes % 8.1 % (21.2-54.2); Mean Corpuscular HGB Conc 31.5 GM/DL (32-36); Mean Platelet Volume 10.1 FL (9.6-12.0); Monocytes % 7.7 % (1.7-12.7); NRBC # 0.11 10*3/uL; Neutrophils % 82.2 % (38.7-73.9); Platelet Count 312 T/CUMM (130-400); Red Blood Count 3.61 MC/CUMM (3.8-5.5); Red Cell Distribution Width 15.6 % (9.3-17.3); White Blood Count 9.9 T/CUMM (4-12)
[2019-05-25 09:36] LABS: Calcium 8.8 MG/DL (8.5-10.1); Osmolality,Calculated 278.2 MOS/KG (273-304)
[2019-05-25] MEDS: HYDROCORTISONE 100 MG VIAL IV SCH (12:06)
[2019-05-25] MEDS: sitaGLIPtin 25 MG TABLET PO SCH ×2 (12:06→20:50)
[2019-05-25] MEDS ORDERED: TUBERCULIN SKIN TEST 0.1 ML SYRINGE INTRADERM ONE (14:30)
[2019-05-25] MEDS: ZALEPLON 5 MG CAPSULE PO PRN ×2 (20:50→20:54)
[2019-05-25] MEDS: CLORAZEPATE 7.5 MG TABLET PO SCH (20:50)
[2019-05-25] MEDS: ROSUVASTATIN 20 MG TABLET PO SCH (20:51)
[2019-05-26] MEDS: ALBUTEROL/IPRATROPIUM 3 ML NEB RESP TX SCH ×4 (02:47→19:21)
[2019-05-26] MEDS: DOCUSATE SODIUM 100 MG CAPSULE PO SCH (08:32)
[2019-05-26] MEDS: LINACLOTIDE 145 MCG CAPSULE PO SCH (08:32)
[2019-05-26] MEDS: MIDODRINE 5 MG TABLET PO SCH ×3 (08:33→21:51)
[2019-05-26] MEDS: AMIODARONE 200 MG TABLET PO SCH ×2 (08:33→21:51)
[2019-05-26] MEDS: SODIUM CHLORIDE 1 GM TABLET PO SCH ×3 (08:33→21:49)
[2019-05-26] MEDS: ASPIRIN EC 325 MG TABLET PO SCH (08:33)
[2019-05-26] MEDS: NYSTATIN 500,000 UNIT/5 ML UDCUP SWISH/SWAL SCH ×4 (08:38→21:52)
[2019-05-26] MEDS: PANTOPRAZOLE 40 MG TABLET PO SCH (08:38)
[2019-05-26] MEDS: GLIMEPIRIDE 2 MG TABLET PO SCH (08:38)
[2019-05-26] MEDS: FERROUS SULFATE 325 MG TABLET PO SCH (08:38)
[2019-05-26] MEDS: FLUDROCORTISONE 0.1 MG TABLET PO SCH ×2 (08:38→21:51)
[2019-05-26] MEDS: INSULIN GLARGINE 100 UNIT/ML SUBCUT SCH (08:38)
[2019-05-26] MEDS: CHLORHEXIDINE 0.12% ORAL RINSE 60 ML BOTTLE SWISH/SPIT SCH ×2 (08:39→21:51)
[2019-05-26 09:19] LABS: Eosinophils % 0.2 % (0.00-10.9); Hematocrit 31.7 VOL% (42.0-52.0); Hemoglobin 10.1 GM/DL (14.0-18.0); Immature Granulocytes % 1.1 %; Lymphocytes # 0.5 10*3/uL (1.4-4.0); Lymphocytes % 5.3 % (21.2-54.2); Mean Corpuscular HGB Conc 31.9 GM/DL (32-36); Mean Corpuscular Volume 86.1 FL (87-102); Mean Platelet Volume 9.8 FL (9.6-12.0); Monocytes % 6.6 % (1.7-12.7); NRBC # 0.05 10*3/uL; Neutrophils % 86.8 % (38.7-73.9); Platelet Count 277 T/CUMM (130-400); Red Blood Count 3.68 MC/CUMM (3.8-5.5); Red Cell Distribution Width 15.4 % (9.3-17.3); White Blood Count 9.4 T/CUMM (4-12)
[2019-05-26 09:45] LABS: Calcium 8.7 MG/DL (8.5-10.1); Osmolality,Calculated 281.2 MOS/KG (273-304)
[2019-05-26] MEDS ORDERED: FUROSEMIDE 20 MG/2 ML VIAL IV ONE (11:23)
[2019-05-26] MEDS: HYDROCORTISONE 100 MG VIAL IV SCH (12:36)
[2019-05-26] MEDS: INSULIN REGULAR 100 UNIT/ML SUBCUT SCH ×2 (17:04→21:51)
[2019-05-26] MEDS ORDERED: MIRTAZAPINE 15 MG TABLET PO SCH (21:00)
[2019-05-26] MEDS: ROSUVASTATIN 20 MG TABLET PO SCH (21:49)
[2019-05-26] MEDS: CLORAZEPATE 7.5 MG TABLET PO SCH (21:51)
[2019-05-26] MEDS: ZALEPLON 5 MG CAPSULE PO PRN (23:20)
[2019-05-27] MEDS: ALBUTEROL/IPRATROPIUM 3 ML NEB RESP TX SCH ×5 (00:44→19:32)
[2019-05-27 05:35] LABS: Basophils % 0.1 % (0.0-0.8); Eosinophils # 0.1 10*3/uL (0.0-0.87); Eosinophils % 0.7 % (0.00-10.9); Hematocrit 30.5 VOL% (42.0-52.0); Hemoglobin 9.9 GM/DL (14.0-18.0); Immature Granulocytes % 1.2 %; Immature Granulocytes Absolute 0.18 #; Lymphocytes # 0.6 10*3/uL (1.4-4.0); Lymphocytes % 4.2 % (21.2-54.2); Mean Corpuscular HGB Conc 32.5 GM/DL (32-36); Mean Platelet Volume 10.4 FL (9.6-12.0); Monocytes % 4.4 % (1.7-12.7); Neutrophils % 89.4 % (38.7-73.9); Platelet Count 285 T/CUMM (130-400); Red Blood Count 3.59 MC/CUMM (3.8-5.5); Red Cell Distribution Width 15.1 % (9.3-17.3); White Blood Count 14.9 T/CUMM (4-12)
[2019-05-27 05:48] LABS: Calcium 8.6 MG/DL (8.5-10.1); Osmolality,Calculated 268.8 MOS/KG (273-304)
[2019-05-27 06:04] LABS: Band Neutrophils 2 % (0-10); Eosinophils 1 % (0-10); Lymphocytes 3 % (20-55); Myelocytes 1 %; Nucleated Red Blood Cells 2 (0-5); Segmented Neutrophils 89 % (50-85); Total Cells Counted 100
[2019-05-27 06:05] LABS: Hypochromasia 2+; Ovalocytes Slight; Target Cells Slight
[2019-05-27 06:06] LABS: Anisocytosis 1+; Microcytosis 1+
[2019-05-27 06:07] LABS: Platelet Estimate Normal
[2019-05-27] MEDS: oxyCODONE/ACETAMINOPHEN 5-325 MG TABLET PO PRN ×2 (07:30→20:15)
[2019-05-27] MEDS: INSULIN REGULAR 100 UNIT/ML SUBCUT SCH ×4 (08:11→20:23)
[2019-05-27] MEDS: INSULIN GLARGINE 100 UNIT/ML SUBCUT SCH (08:12)
[2019-05-27] MEDS: FLUDROCORTISONE 0.1 MG TABLET PO SCH ×2 (09:11→20:14)
[2019-05-27] MEDS: AMIODARONE 200 MG TABLET PO SCH ×2 (09:11→20:14)
[2019-05-27] MEDS: DOCUSATE SODIUM 100 MG CAPSULE PO SCH (09:11)
[2019-05-27] MEDS: SODIUM CHLORIDE 1 GM TABLET PO SCH ×3 (09:11→20:15)
[2019-05-27] MEDS: MIDODRINE 5 MG TABLET PO SCH ×3 (09:11→20:14)
[2019-05-27] MEDS: LINACLOTIDE 145 MCG CAPSULE PO SCH (09:11)
[2019-05-27] MEDS: ASPIRIN EC 325 MG TABLET PO SCH (09:11)
[2019-05-27] MEDS: NYSTATIN 500,000 UNIT/5 ML UDCUP SWISH/SWAL SCH ×4 (09:12→20:23)
[2019-05-27] MEDS: FERROUS SULFATE 325 MG TABLET PO SCH (09:12)
[2019-05-27] MEDS: CHLORHEXIDINE 0.12% ORAL RINSE 60 ML BOTTLE SWISH/SPIT SCH ×2 (09:12→20:23)
[2019-05-27] MEDS: PANTOPRAZOLE 40 MG TABLET PO SCH (09:12)
[2019-05-27] MEDS: HYDROCORTISONE 100 MG VIAL IV SCH (12:24)
[2019-05-27] MEDS: ROSUVASTATIN 20 MG TABLET PO SCH (20:14)
[2019-05-27] MEDS: CLORAZEPATE 7.5 MG TABLET PO SCH (21:16)
[2019-05-28] MEDS: ALBUTEROL/IPRATROPIUM 3 ML NEB RESP TX SCH ×4 (00:56→19:59)
[2019-05-28] MEDS: oxyCODONE/ACETAMINOPHEN 5-325 MG TABLET PO PRN (02:28)
[2019-05-28 05:04] LABS: Basophils % 0.2 % (0.0-0.8); Eosinophils # 0.1 10*3/uL (0.0-0.87); Eosinophils % 0.7 % (0.00-10.9); Hematocrit 31.3 VOL% (42.0-52.0); Hemoglobin 9.7 GM/DL (14.0-18.0); Immature Granulocytes % 0.9 %; Lymphocytes # 0.5 10*3/uL (1.4-4.0); Lymphocytes % 4.7 % (21.2-54.2); Mean Corpuscular Volume 86.2 FL (87-102); NRBC # 0.04 10*3/uL; Neutrophils % 88.5 % (38.7-73.9); Platelet Count 249 T/CUMM (130-400); Red Blood Count 3.63 MC/CUMM (3.8-5.5); Red Cell Distribution Width 15.7 % (9.3-17.3); White Blood Count 11.5 T/CUMM (4-12)
[2019-05-28 05:30] LABS: Lymphocytes 2 % (20-55); Platelet Estimate Normal; Polychromasia Few; Segmented Neutrophils 95 % (50-85); Target Cells Few; Total Cells Counted 100
[2019-05-28 05:44] LABS: Calcium 8.4 MG/DL (8.5-10.1); Osmolality,Calculated 274.5 MOS/KG (273-304)
[2019-05-28 05:46] LABS: Apearance,Urine CLEAR (Clear); Bilirubin,Urine Negative (Negative); Blood, Urine Negative (Negative); Glucose,Urine (UA) 150 mg/dL (Negative); Ketones,Urine Negative (Negative); Nitrite,Urine Negative (Negative); Protein,Urine 30 MG/DL; RBC,Urine 1 /HPF (0-4); Urine Color Yellow (Yellow); Urine Specific Gravity 1.016 (1.001-1.035); Urine Urobilinogen < 2.0 EU/DL (0.2-1.0)
[2019-05-28] MEDS ORDERED: IPRATROPIUM 500 MCG/2.5 ML NEB RESP TX ONE (06:00)
[2019-05-28] MEDS ORDERED: ALBUTEROL 2.5 MG/3 ML NEB RESP TX ONE (06:00)
[2019-05-28] MEDS ORDERED: PANTOPRAZOLE 40 MG TABLET PO ONE (06:00)
[2019-05-28] MEDS ORDERED: LACTATED RINGERS 1,000 ML IV SCH (06:00)
[2019-05-28] MEDS ORDERED: DEXMEDETOMIDINE 200 MCG/2 ML VIAL IV ONE (06:31)
[2019-05-28] MEDS ORDERED: ePHEDrine 50 MG/ML AMP ONE (06:31)
[2019-05-28] MEDS ORDERED: HEPARIN/NACL 0.9% 2 UNITS/ML 500 ML IV ONE (06:31)
[2019-05-28] MEDS ORDERED: DOPamine 800 MG/250 ML PREMIX IV ONE (06:31)
[2019-05-28] MEDS ORDERED: ceFAZolin 2,000 MG in PREMIX 1 EACH IV ONE (07:00)
[2019-05-28] MEDS: INSULIN REGULAR 100 UNIT/ML SUBCUT SCH ×4 (07:30→20:20)
[2019-05-28] MEDS: DOPamine 800 MG/250 ML PREMIX IV SCH (07:30)
[2019-05-28] MEDS ORDERED: TEMAZEPAM 7.5 MG CAPSULE PO PRN (08:42)
[2019-05-28] MEDS ORDERED: MAGNESIUM HYDROXIDE SUSP 30 ML UDCUP PO PRN (08:42)
[2019-05-28] MEDS ORDERED: PROMETHAZINE 25 MG/1 ML VIAL IM PRN (08:42)
[2019-05-28] MEDS ORDERED: LACTULOSE 20 GM/30 ML UDCUP PO PRN (08:42)
[2019-05-28] MEDS ORDERED: diphenhydrAMINE CAP 25 MG CAPSULE PO PRN (08:42)
[2019-05-28] MEDS ORDERED: BISACODYL 10 MG SUPP RECTAL PRN (08:42)
[2019-05-28] MEDS ORDERED: MORPHINE 4 MG/1 ML VIAL IV PRN (08:51)
[2019-05-28] MEDS: PANTOPRAZOLE 40 MG TABLET PO SCH (09:00)
[2019-05-28] MEDS: SODIUM CHLORIDE 1 GM TABLET PO SCH ×3 (09:00→20:21)
[2019-05-28] MEDS: CHLORHEXIDINE 0.12% ORAL RINSE 60 ML BOTTLE SWISH/SPIT SCH ×2 (09:00→20:21)
[2019-05-28] MEDS: AMIODARONE 200 MG TABLET PO SCH ×2 (09:00→20:20)
[2019-05-28] MEDS: INSULIN GLARGINE 100 UNIT/ML SUBCUT SCH (09:00)
[2019-05-28] MEDS: ASPIRIN EC 325 MG TABLET PO SCH (09:00)
[2019-05-28] MEDS: NYSTATIN 500,000 UNIT/5 ML UDCUP SWISH/SWAL SCH ×4 (09:00→20:20)
[2019-05-28] MEDS: FERROUS SULFATE 325 MG TABLET PO SCH (09:00)
[2019-05-28] MEDS: FLUDROCORTISONE 0.1 MG TABLET PO SCH ×2 (09:00→20:20)
[2019-05-28] MEDS: DOCUSATE SODIUM 100 MG CAPSULE PO SCH (09:00)
[2019-05-28] MEDS: LINACLOTIDE 145 MCG CAPSULE PO SCH (09:00)
[2019-05-28] MEDS: MIDODRINE 5 MG TABLET PO SCH ×3 (09:00→20:21)
[2019-05-28] MEDS ORDERED: KETAMINE 500 MG/10 ML VIAL ONE (09:09)
[2019-05-28] MEDS ORDERED: fentaNYL 100 MCG/2 ML VIAL ONE (09:09)
[2019-05-28] MEDS ORDERED: MIDAZOLAM 2 MG/2 ML VIAL ONE (09:10)
[2019-05-28] MEDS ORDERED: BUPIVACAINE SPINAL 0.75% 2 ML AMP SPINAL ONE (09:10)
[2019-05-28] MEDS ORDERED: HYDROCORTISONE 100 MG VIAL IV ONE (09:10)
[2019-05-28] MEDS ORDERED: HYDROCORTISONE 100 MG VIAL ONE (09:30)
[2019-05-28] MEDS: HYDROCORTISONE 100 MG VIAL IV SCH ×2 (10:22→20:21)
[2019-05-28] MEDS: ceFAZolin 1,000 MG in SYRINGE 1 EACH IV SCH ×2 (15:33→21:28)
[2019-05-28] MEDS: FONDAPARINUX 2.5 MG/0.5 ML SYRINGE SUBCUT SCH (20:20)
[2019-05-28] MEDS: ROSUVASTATIN 20 MG TABLET PO SCH (20:20)
[2019-05-29] MEDS: ALBUTEROL/IPRATROPIUM 3 ML NEB RESP TX SCH ×4 (01:26→19:19)
[2019-05-29 03:41] LABS: Hematocrit 30.8 VOL% (42.0-52.0); Hemoglobin 9.7 GM/DL (14.0-18.0); Immature Granulocytes % 0.7 %; Immature Granulocytes Absolute 0.07 #; Lymphocytes # 0.3 10*3/uL (1.4-4.0); Lymphocytes % 2.6 % (21.2-54.2); Mean Corpuscular HGB Conc 31.5 GM/DL (32-36); Mean Corpuscular Volume 86.8 FL (87-102); Mean Platelet Volume 9.8 FL (9.6-12.0); Monocytes % 3.3 % (1.7-12.7); NRBC # 0.02 10*3/uL; Neutrophils % 93.4 % (38.7-73.9); Platelet Count 230 T/CUMM (130-400); Red Blood Count 3.55 MC/CUMM (3.8-5.5); Red Cell Distribution Width 15.7 % (9.3-17.3); White Blood Count 10.1 T/CUMM (4-12)
[2019-05-29 03:46] LABS: Calcium 8.2 MG/DL (8.5-10.1); Osmolality,Calculated 275.8 MOS/KG (273-304)
[2019-05-29 05:13] LABS: Lymphocytes 5 % (20-55); Platelet Estimate Normal; Segmented Neutrophils 93 % (50-85); Total Cells Counted 100
[2019-05-29] MEDS: INSULIN REGULAR 100 UNIT/ML SUBCUT SCH ×5 (08:01→23:43)
[2019-05-29] MEDS: MORPHINE 4 MG/1 ML VIAL IV PRN ×3 (08:03→17:33)
[2019-05-29] MEDS: INSULIN GLARGINE 100 UNIT/ML SUBCUT SCH (08:31)
[2019-05-29] MEDS: HYDROCORTISONE 100 MG VIAL IV SCH ×2 (08:32→21:13)
[2019-05-29] MEDS: NYSTATIN 500,000 UNIT/5 ML UDCUP SWISH/SWAL SCH ×4 (08:34→21:12)
[2019-05-29] MEDS: FLUDROCORTISONE 0.1 MG TABLET PO SCH ×2 (08:35→21:12)
[2019-05-29] MEDS: AMIODARONE 200 MG TABLET PO SCH ×2 (08:35→21:10)
[2019-05-29] MEDS: DOCUSATE SODIUM 100 MG CAPSULE PO SCH (08:35)
[2019-05-29] MEDS: ASPIRIN EC 325 MG TABLET PO SCH (08:35)
[2019-05-29] MEDS: SODIUM CHLORIDE 1 GM TABLET PO SCH ×3 (08:35→21:11)
[2019-05-29] MEDS: PANTOPRAZOLE 40 MG TABLET PO SCH (08:35)
[2019-05-29] MEDS: MIDODRINE 5 MG TABLET PO SCH ×3 (08:36→21:15)
[2019-05-29] MEDS: FERROUS SULFATE 325 MG TABLET PO SCH (08:36)
[2019-05-29] MEDS: CHLORHEXIDINE 0.12% ORAL RINSE 60 ML BOTTLE SWISH/SPIT SCH ×2 (08:37→21:12)
[2019-05-29] MEDS: LINACLOTIDE 145 MCG CAPSULE PO SCH (09:11)
[2019-05-29] MEDS: oxyCODONE/ACETAMINOPHEN 5-325 MG TABLET PO PRN ×2 (11:44→21:13)
[2019-05-29] MEDS: FONDAPARINUX 2.5 MG/0.5 ML SYRINGE SUBCUT SCH (21:10)
[2019-05-29] MEDS: ROSUVASTATIN 20 MG TABLET PO SCH (21:11)
[2019-05-30] MEDS: DOPamine 800 MG/250 ML PREMIX IV SCH ×3 (00:35→08:45)
[2019-05-30] MEDS: ALBUTEROL/IPRATROPIUM 3 ML NEB RESP TX SCH ×4 (00:42→19:19)
[2019-05-30 04:15] LABS: Basophils % 0.1 % (0.0-0.8); Hematocrit 29.8 VOL% (42.0-52.0); Hemoglobin 9.1 GM/DL (14.0-18.0); Immature Granulocytes % 0.8 %; Immature Granulocytes Absolute 0.08 #; Lymphocytes # 0.3 10*3/uL (1.4-4.0); Lymphocytes % 2.7 % (21.2-54.2); Mean Corpuscular HGB Conc 30.5 GM/DL (32-36); Mean Corpuscular Volume 87.6 FL (87-102); Mean Platelet Volume 9.6 FL (9.6-12.0); Monocytes % 4.2 % (1.7-12.7); Neutrophils % 92.2 % (38.7-73.9); Platelet Count 201 T/CUMM (130-400); Red Cell Distribution Width 15.8 % (9.3-17.3); White Blood Count 9.8 T/CUMM (4-12)
[2019-05-30 04:27] LABS: Calcium 8.2 MG/DL (8.5-10.1); Osmolality,Calculated 279.5 MOS/KG (273-304)
[2019-05-30 04:33] LABS: Lymphocytes 2 % (20-55); Platelet Estimate Adequate; Segmented Neutrophils 93 % (50-85); Total Cells Counted 100
[2019-05-30 04:34] LABS: Hypochromasia 1+; Ovalocytes Slight
[2019-05-30] MEDS: POTASSIUM CHLORIDE 20 MEQ TABLET PO PRN ×2 (05:01→06:22)
[2019-05-30] MEDS: PANTOPRAZOLE 40 MG TABLET PO SCH (08:28)
[2019-05-30] MEDS: DOCUSATE SODIUM 100 MG CAPSULE PO SCH (08:28)
[2019-05-30] MEDS: FLUDROCORTISONE 0.1 MG TABLET PO SCH ×2 (08:28→21:44)
[2019-05-30] MEDS: AMIODARONE 200 MG TABLET PO SCH ×2 (08:28→21:44)
[2019-05-30] MEDS: FERROUS SULFATE 325 MG TABLET PO SCH (08:28)
[2019-05-30] MEDS: MIDODRINE 5 MG TABLET PO SCH ×3 (08:28→21:44)
[2019-05-30] MEDS: NYSTATIN 500,000 UNIT/5 ML UDCUP SWISH/SWAL SCH ×4 (08:28→21:44)
[2019-05-30] MEDS: ASPIRIN EC 325 MG TABLET PO SCH (08:28)
[2019-05-30] MEDS: SODIUM CHLORIDE 1 GM TABLET PO SCH ×3 (08:28→21:44)
[2019-05-30] MEDS: INSULIN GLARGINE 100 UNIT/ML SUBCUT SCH (08:29)
[2019-05-30] MEDS: HYDROCORTISONE 100 MG VIAL IV SCH ×2 (08:29→21:45)
[2019-05-30] MEDS: INSULIN REGULAR 100 UNIT/ML SUBCUT SCH ×4 (08:40→21:45)
[2019-05-30] MEDS: CHLORHEXIDINE 0.12% ORAL RINSE 60 ML BOTTLE SWISH/SPIT SCH ×2 (08:41→21:44)
[2019-05-30] MEDS: LINACLOTIDE 145 MCG CAPSULE PO SCH (08:45)
[2019-05-30] MEDS: metFORMIN 500 MG TABLET PO SCH ×2 (08:55→16:09)
[2019-05-30] MEDS: ROSUVASTATIN 20 MG TABLET PO SCH (21:44)
[2019-05-30] MEDS: FONDAPARINUX 2.5 MG/0.5 ML SYRINGE SUBCUT SCH (21:44)
[2019-05-31] MEDS: ALBUTEROL/IPRATROPIUM 3 ML NEB RESP TX SCH ×4 (01:10→20:35)
[2019-05-31] MEDS: INSULIN REGULAR 100 UNIT/ML SUBCUT SCH ×4 (08:29→20:59)
[2019-05-31] MEDS: INSULIN GLARGINE 100 UNIT/ML SUBCUT SCH (08:29)
[2019-05-31] MEDS: NYSTATIN 500,000 UNIT/5 ML UDCUP SWISH/SWAL SCH ×4 (08:30→20:59)
[2019-05-31] MEDS: PANTOPRAZOLE 40 MG TABLET PO SCH (08:30)
[2019-05-31] MEDS: FLUDROCORTISONE 0.1 MG TABLET PO SCH (08:30)
[2019-05-31] MEDS: FERROUS SULFATE 325 MG TABLET PO SCH (08:30)
[2019-05-31] MEDS: HYDROCORTISONE 100 MG VIAL IV SCH (08:30)
[2019-05-31] MEDS: DOCUSATE SODIUM 100 MG CAPSULE PO SCH (08:30)
[2019-05-31] MEDS: AMIODARONE 200 MG TABLET PO SCH ×2 (08:30→20:59)
[2019-05-31] MEDS: ASPIRIN EC 325 MG TABLET PO SCH (08:30)
[2019-05-31] MEDS: SODIUM CHLORIDE 1 GM TABLET PO SCH ×3 (08:30→20:59)
[2019-05-31] MEDS: CHLORHEXIDINE 0.12% ORAL RINSE 60 ML BOTTLE SWISH/SPIT SCH ×2 (08:30→20:59)
[2019-05-31] MEDS: metFORMIN 500 MG TABLET PO SCH ×2 (08:30→15:59)
[2019-05-31] MEDS: MIDODRINE 5 MG TABLET PO SCH ×3 (08:43→20:59)
[2019-05-31] MEDS: DOPamine 800 MG/250 ML PREMIX IV SCH (09:40)
[2019-05-31] MEDS: LINACLOTIDE 145 MCG CAPSULE PO SCH (12:29)
[2019-05-31] MEDS: FONDAPARINUX 2.5 MG/0.5 ML SYRINGE SUBCUT SCH (20:58)
[2019-05-31] MEDS: ROSUVASTATIN 20 MG TABLET PO SCH (20:59)
[2019-05-31] MEDS: oxyCODONE/ACETAMINOPHEN 5-325 MG TABLET PO PRN (22:00)
[2019-06-01] MEDS: ALBUTEROL/IPRATROPIUM 3 ML NEB RESP TX SCH ×3 (01:45→13:53)
[2019-06-01 05:03] LABS: Calcium 7.7 MG/DL (8.5-10.1); Osmolality,Calculated 278.5 MOS/KG (273-304)
[2019-06-01] MEDS: POTASSIUM CHLORIDE 20 MEQ TABLET PO PRN ×2 (05:18→06:22)
[2019-06-01] MEDS: MAGNESIUM SULF RIDER 2 GM in PREMIX 1 EACH IV PRN (05:18)
[2019-06-01] MEDS ORDERED: FLUDROCORTISONE 0.1 MG TABLET PO SCH (09:00)
[2019-06-01] MEDS ORDERED: COENZYME Q10 100 MG CAPSULE PO SCH (09:00)
[2019-06-01] MEDS ORDERED: HYDROCORTISONE 100 MG VIAL IV SCH (09:00)
[2019-06-01] MEDS: INSULIN REGULAR 100 UNIT/ML SUBCUT SCH ×2 (10:22→13:01)
[2019-06-01] MEDS: metFORMIN 500 MG TABLET PO SCH (10:23)
[2019-06-01] MEDS: ASPIRIN EC 325 MG TABLET PO SCH (10:23)
[2019-06-01] MEDS: LINACLOTIDE 145 MCG CAPSULE PO SCH (10:23)
[2019-06-01] MEDS: DOCUSATE SODIUM 100 MG CAPSULE PO SCH (10:24)
[2019-06-01] MEDS: FERROUS SULFATE 325 MG TABLET PO SCH (10:24)
[2019-06-01] MEDS: AMIODARONE 200 MG TABLET PO SCH (10:24)
[2019-06-01] MEDS: INSULIN GLARGINE 100 UNIT/ML SUBCUT SCH (10:24)
[2019-06-01] MEDS: NYSTATIN 500,000 UNIT/5 ML UDCUP SWISH/SWAL SCH ×2 (10:25→14:05)
[2019-06-01] MEDS: PANTOPRAZOLE 40 MG TABLET PO SCH (10:25)
[2019-06-01] MEDS: MIDODRINE 5 MG TABLET PO SCH ×2 (10:25→14:07)
[2019-06-01] MEDS: CHLORHEXIDINE 0.12% ORAL RINSE 60 ML BOTTLE SWISH/SPIT SCH (10:25)
[2019-06-01] MEDS: DOPamine 800 MG/250 ML PREMIX IV SCH (10:26)
[2019-06-01] MEDS: SODIUM CHLORIDE 1 GM TABLET PO SCH (10:27)
[2019-06-01 12:15] LABS: Albumin 2.3 G/DL (3.4-5.0); Bilirubin,Direct 0.18 MG/DL (0.0-0.20); Bilirubin,Indirect 0.2 MG/DL (0.0-1.0); Bilirubin,Total 0.4 MG/DL (0.2-1.0); Total Protein 5.4 G/DL (6.4-8.3)
[2019-06-01 16:40] VITALS: BP 99/65
[2019-06-02] MEDS ORDERED: predniSONE 20 MG TABLET PO SCH (09:00)
== END 2019-06-01 17:10 | DRG 233 ==
LOC: N.ED 19:27 → N.EDINP 22:21 → SUATTDRO 22:21 → N.2E 23:33 → N.ICU 05-08 11:14 → N.TELEN 05-10 12:55 → N.CC 05-15 12:18 → N.CVR 05-16 10:45 → N.ICU 05-17 14:42 → N.TELES 05-18 19:26 → N.ICU 05-28 09:38 → N.TELES 05-30 18:14
PROVIDERS: ADMIT Internal Medicine
PROC: CLCCHCL (ICD-10-PCS; 2019-05-09 14:45)